=== PATIENT | female | born 1950 | race Caucasian/White ===

== ENCOUNTER 2023-03-05 13:09 | Emergency (ER) | payer OTHER, SELFPAY ==
[2023-03-05] VITALS (20 sets, daily range): BP systolic 104–146; BP diastolic 58–78; PULSE 70–82; RESP 10–27; TEMP 36.1; O2SAT 92–98
--- NOTE | ~2023-03-05 | XR_ITS ---
XR chest 2V DATE: 03/05/2023 14:12 INDICATION: Central chest pain, upper back pain. TECHNIQUE: 2 views, PA and lateral projections COMPARISON: None FINDINGS: Normal heart size. There is aortic arch calcification. No hilar or mediastinal enlargement. No pulmonary infiltrate or consolidation, pleural effusion or pulmonary vascular congestion or pneumo thorax. IMPRESSION: No active cardiopulmonary disease Aortic calcification Reviewed, dictated and finalized at location L.
--- NOTE | 2023-03-05 13:10 | ECG_ITS ---
Measurements Intervals [place] Rate: 90 P: -3 WV: 156 QRS: -2 QRSD: 104 T: 50 QT: 394 QTc: 482 Interpretive Statements SINUS RHYTHM CONSIDER INFERIOR INFARCT, AGE INDETERMINATE BASELINE ARTIFACT- I, II, AVF, V4-V5 ABNORMAL ECG NO PREVIOUS ECG AVAILABLE FOR COMPARISON Electronically Signed On 03-05-2023 14:23:28 CDT by Júnior Kinney D.O.
[2023-03-05] MEDS: BELLADONNA ALK/PHENOB ELIX 10 ML, MAG HYDROX/ALUMINUM HYD/SIMETH 30 ML, LIDOCAINE HCL 2... PO (14:04)
[2023-03-05 14:05] LABS: Basophils Absolute Auto 0.1 K/mm3 (0.0-0.1); Basophils Percent Auto 0.7 % (0.2-1.2); Eosinophils Absolute Auto 0.2 K/mm3 (0-0.3); Eosinophils Percent Auto 2.5 % (0-4.4); Hematocrit 42.8 % (37.0-47.0); Hemoglobin 14.6 g/dL (12.0-15.0); Immature Granulocyte Absolute 0.02 K/mm3 (0.00-0.031); Immature Granulocyte Percent A 0.3 % (0-0.5); Lymphocytes Absolute Auto 2.52 K/mm3 (0.9-3.2); Lymphocytes Percent Auto 33.2 % (18.3-44.2); Mean Corpuscular HGB Conc 34.1 g/dl (32-36); Mean Corpuscular Hemoglobin 30.2 pg (26-34); Mean Corpuscular Volume 88.4 fl (80-100); Monocytes Absolute Auto 0.5 K/mm3 (0.1-0.6); Monocytes Percent Auto 7.1 % (2.6-8.5); Neutrophils Absolute Auto 4.3 K/mm3 (1.3-6.7); Neutrophils Percent Auto 56.2 % (45.5-73.1); Platelet Count Result 427 k/mm3 (150-375); Red Blood Count 4.84 M/mm3 (4.2-5.4); Red Cell Distribution Width 12.6 % (11.5-14.5); White Blood Count 7.6 K/mm3 (4.5-10.0)
[2023-03-05 14:14] LABS: Alanine Aminotransferase 26 U/L (6-35); Albumin Level 4.8 g/dL (3.5-5.1); Alkaline Phosphatase 67 U/L (38-126); Anion Gap 11 mmol/L (8-16); Aspartate Amino Transferase 23 U/L (14-36); Bilirubin,Total 0.5 mg/dL (0.2-1.3); Blood Urea Nitrogen 16 mg/dL (7-17); Calcium 9.5 mg/dL (8.4-10.2); Carbon Dioxide 24 mmol/L (22-30); Chloride 103 mmol/L (98-107); Estimated CRCL calculation 34 ml/min; Estimated Glomerular Filt Rate 55; Glucose 175 mg/dL (65-110); Lipase 358 U/L (23-300); Potassium 3.4 mmol/L (3.4-5.0); Prothrombin Time 13.3 Seconds (11.1-14.7); Sodium 138 mmol/L (137-145)
[2023-03-05 14:26] LABS: Troponin I < 0.012 ng/mL (0.000-0.034)
[2023-03-05 16:00] LABS: Troponin I < 0.012 ng/mL (0.000-0.034)
--- NOTE | 2023-03-05 16:47 | ED.CHESTPAIN ---
HPI - Chest Pain General Chief Complaint: Chest Pain Stated Complaint: chest pain Time Seen by Provider: 03/05/23 13:43 Source: patient Mode of arrival: ambulatory Limitations: no limitations History of Present Illness HPI narrative: 72-year-old with a history of hypertension, s/p hiatal hernia repair approximately 2 years ago presents to ER with complaints of having chest pressure since this morning. She states that pain is midsternal nonradiating. She also mentions that she had cardiac cath done a year ago at [facility] did not have any significant stenosis which needed any interventions or stents. She denies any cough has occasional shortness of breath. MD complaint: chest pain Onset (ago): hour(s) (8) Timing of current episode: constant Pain location: substernal Pain radiation: none Severity: moderate Quality: burning Relieving factors: nothing Exacerbating factors: nothing Risk Factors Coronary artery disease risk factors: diabetes Related Data Allergies Allergy/AdvReac Type Severity Reaction Status Date / Time codeine AdvReac Hives Verified 03/05/23 13:10 Review of Systems Review of Systems: All systems reviewed & are unremarkable except as noted in HPI and below Eyes: Eyes: Reports no additional eye complaints ENT: Reports system reviewed and no additional complaints, except as documented Cardiovascular: Cardiovascular: Reports as per HPI Respiratory: Respiratory: Reports no additional respiratory complaints Gastrointestinal: Gastrointestinal: Reports no additional gastrointestinal complaints Musculoskeletal: Musculoskeletal: Reports no additional musculoskeletal complaints Integumentary/Breasts: Skin/Breast: Reports system reviewed and no additional complaints, except as docu Neurologic: Reports system reviewed and no additional complaints, except as documented Exam Narrative: GENERAL: Well-appearing, well-nourished, and in no acute distress. HEAD: Normocephalic, atraumatic. EYES: PERRLA and EOMI. ENT: Nares clear, no rhinorrhea or epistaxis. Mucous membranes moist. NECK: Supple. CHEST: Clear to auscultation. No respiratory distress. HEART: Regular rate and rhythm. No murmur heard. Normal peripheral pulses. ABDOMEN: Soft, nontender, nondistended, normal active bowel sounds. EXTREMITIES: Normal range of motion. No edema. SKIN: Warm, dry, no rash. NEURO: No focal deficits. Alert and oriented x3. PSYCH: Normal mood and affect. Course Course Emergency Course: Patient feeling much better after GI cocktail. Informed her and her about her lab work, EKG and chest x-ray findings. Advised her to continue home medications, follow-up with her white shoe ragger at [facility]. Vital Signs Vital signs: Vital Signs Temperature 36.1 C L 03/05/23 13:15 Pulse Rate 76 03/05/23 13:15 Respiratory Rate 18 03/05/23 13:15 Blood Pressure 146/60 H 03/05/23 13:15 Pulse Oximetry 98 03/05/23 13:15 Oxygen Delivery Room Air 03/05/23 13:15 Temperature 36.1 C L 03/05/23 13:15 Pulse Rate 72 03/05/23 15:00 Respiratory Rate 18 03/05/23 15:00 Blood Pressure 116/60 03/05/23 15:00 Pulse Oximetry 92 03/05/23 15:00 Oxygen Delivery Room Air 03/05/23 13:15 MDM - Chest Pain MDM Narrative Medical decision making narrative: 72-year-old with history of hypertension, hiatal hernia here with a midsternal chest pain which is continuous burning in nature since this morning her EKG is unremarkable we will do cardiac work-up minimal give her GI cocktail appears to be more relaxed reflux issue at this time. Differential Diagnosis Differential diagnosis: Likely stable angina, atypical chest pain and chest pain Lab Data Attestation: I reviewed the patient's lab results. 03/05/23 13:41 03/05/23 13:41 Labs: Lab Results 03/05/23 03/05/23 Range/Units 13:41 15:31 WBC 7.6 (4.5-10.0) K/mm3 RBC 4.84 (4.2-5.4) M/mm3 Hgb 14.6 (12.0-15.0) g/dL Hct 42.8
== END 2023-03-05 17:01 | disposition home or self-care (01) ==
PROVIDERS: Emergency Provider Family Medicine
DX: R07.89 Other chest pain (principal); I10 Essential (primary) hypertension; I70.0 Atherosclerosis of aorta; R94.31 Abnormal electrocardiogram [ECG] [EKG]
CPT/HCPCS: 36415; 71046; 80053; 83690; 84484; 85025; 85610; 85730; 93005; 99284; A9270

== ENCOUNTER 2024-03-10 16:10 | Observation (INO) | payer OTHER, SELFPAY ==
[2024-03-10] VITALS (12 sets, daily range): BP systolic 94–118; BP diastolic 54–87; PULSE 68–81; RESP 16–23; TEMP 36.5–36.6; O2SAT 94–100
--- NOTE | ~2024-03-10 | MR_ITS ---
EXAMINATION: MR brain/brain stem wo/w con DATE: 03/11/2024 08:51 INDICATION: Left hemiparesis. TECHNIQUE: Magnetic resonance imaging (MRI) of the brain and brainstem was performed without and with 13 mL MultiHance intravenous contrast. COMPARISON: Head CT 03/10/2024 FINDINGS: There are scattered areas of nonspecific increased T2-weighted signal intensity in the cere bral white matter and becky. There is no intracranial hemorrhage, acute infarction, or abnormal intrac ranial mass lesion. The ventricles are normal in size. The paranasal sinuses are clear. There are lik alexa changes of ocular lens replacement surgeries. The mastoid air cells are normal. IMPRESSION: 1. Mild nonspecific cerebral white matter disease and pontine disease, which likely represents chroni c small vessel ischemic disease. Reviewed, dictated and finalized at location A. ITY ASSURANCE DIRECTOR IMPRESSION: 1. Mild nonspecific cerebral white matter disease and pontine disease, which luther hatch represents chronic small vessel ischemic disease.
--- NOTE | ~2024-03-10 | CT_ITS ---
CTA brain carotid Ordering provider: Casey Saenz MD History: . Stroke like symptoms . Comparison: None. Technique: CT angiogram head and neck was performed following timed intravenous injection of contrast . Thin slice axial images and reformatted coronal images were obtained. Three dimensional reformatted images of the brain were also obtained using a [employer] workstation. DLP: 2253 mGy-cm FINDINGS: HEAD: --ANTERIOR AND MIDDLE CEREBRAL ARTERIES AND BRANCHES: Normal caliber and contour. --INTERNAL CAROTID ARTERIES: Moderate atheromatous disease within the right internal carotid artery r esulting in central stenosis but no occlusion. --BASILAR ARTERY AND BRANCHES: Normal caliber and contour. No significant atheromatous disease. Fenes tration of the basilar artery is incidentally noted. --POSTERIOR CEREBRAL ARTERIES: Normal caliber and contour --POSTERIOR COMMUNICATING ARTERIES: Normal caliber and contour. --ANEURYSM: None visualized. --BRAIN: Calcifications within the basal ganglia. No acute intracranial hemorrhage or suspicious mass effect. --BONES AND SUPERFICIAL SOFT TISSUES: No acute displaced fracture of the overlying cranium. --PARANASAL SINUSES AND MASTOIDS: The paranasal sinuses are clear. The mastoid air cells are well aer ated. NECK: --RIGHT CERVICAL CAROTID SYSTEM: Calcified atheromatous disease of the carotid bulb and proximal inte rnal carotid artery with a 52% stenosis per NASCET criteria. No carotid dissection. --LEFT CERVICAL CAROTID SYSTEM: No significant atheromatous disease of the carotid bulb and proximal internal carotid artery. 0% stenosis per NASCET criteria. No carotid dissection. --VERTEBRAL ARTERIES: Normal caliber and contour. --VISUALIZED AORTIC ARCH AND BRANCHING VESSELS: Mild atheromatous disease but no significant stenosis . --SOFT TISSUES: Unremarkable. --CERVICAL SPINE: Age appropriate degenerative changes. IMPRESSION: 1. Percent stenosis per NASCET criteria is 52% within the right internal carotid artery and 0% with in the left internal carotid artery. 2. Dense calcifications within the basal ganglia. 3. No intracranial aneurysmal dilatation or significant stenosis. Reviewed, dictated and finalized at location A. K CONTROLLER IMPRESSION: 1. Percent stenosis per NASCET criteria is 52% within the right internal hernandez tid artery and 0% within the left internal carotid artery. 2. Dense calcifications within the basal ganglia. 3. No intracranial aneurysmal dilatation or significant stenosis.
--- NOTE | ~2024-03-10 | XR_ITS ---
CHEST RADIOGRAPH, PA AND LATERAL CLINICAL HISTORY: weakness . COMPARISON: 03/05/2023 TECHNIQUE: PA and lateral views of the chest. FINDINGS The cardiomediastinal silhouette is unremarkable. The lungs are clear. Visualized osseous structures and soft tissues are unremarkable. IMPRESSION: No focal infiltrate or effusion. Reviewed, dictated and finalized at location A. ING FLORIST
--- NOTE | 2024-03-10 16:45 | ECG_ITS ---
Test Date: 2024-03-10 16:49:52 Measurements Intervals [place] Rate: 66 P: 25 OR: 175 QRS: 1 QRSD: 101 T: 46 QT: 397 QTc: 417 Interpretive Statements SINUS RHYTHM EARLY PRECORDIAL R/S TRANSITION CONSIDER INFERIOR INFARCT, AGE INDETERMINATE ABNORMAL ECG No previous ECG available for comparison Electronically Signed On 03-10-2024 17:59:42 [employer] by Júnior Kinney D.O.
[2024-03-10 16:53] LABS: Glucose Point of Care 182 mg/dl (65-105)
[2024-03-10 16:56] LABS: Basophils Percent Auto 0.2 % (0.2-1.2); Eosinophils Percent Auto 0.1 % (0-4.4); Hematocrit 41.6 % (37.0-47.0); Hemoglobin 14.2 g/dL (12.0-15.0); Immature Granulocyte Absolute 0.05 K/mm3 (0.00-0.031); Immature Granulocyte Percent A 0.4 % (0-0.5); Lymphocytes Absolute Auto 2.21 K/mm3 (0.9-3.2); Lymphocytes Percent Auto 17.1 % (18.3-44.2); Mean Corpuscular HGB Conc 34.1 g/dl (32-36); Mean Corpuscular Hemoglobin 31.5 pg (26-34); Mean Corpuscular Volume 92.2 fl (80-100); Monocytes Absolute Auto 0.8 K/mm3 (0.1-0.6); Monocytes Percent Auto 6.3 % (2.6-8.5); Neutrophils Absolute Auto 9.9 K/mm3 (1.3-6.7); Neutrophils Percent Auto 75.9 % (45.5-73.1); Platelet Count Result 497 k/mm3 (150-375); Red Blood Count 4.51 M/mm3 (4.2-5.4); Red Cell Distribution Width 13.4 % (11.5-14.5)
[2024-03-10 17:09] LABS: Alanine Aminotransferase 30 U/L (6-35); Albumin Level 4.4 g/dL (3.5-5.1); Alkaline Phosphatase 54 U/L (38-126); Anion Gap 15 mmol/L (4-12); Aspartate Amino Transferase 24 U/L (14-36); Bilirubin,Total 0.5 mg/dL (0.2-1.3); Blood Urea Nitrogen 36 mg/dL (7-17); Calcium 9.6 mg/dL (8.4-10.2); Carbon Dioxide 21 mmol/L (22-30); Chloride 104 mmol/L (98-107); Estimated Glomerular Filt Rate 32; Glucose 142 mg/dL (65-110); Potassium 4.1 mmol/L (3.4-5.0); Sodium 140 mmol/L (137-145)
[2024-03-10 19:49] LABS: Add Urine Microscopic? NO; Appearance Urine Clear (Clear); Bilirubin Urine Negative (Negative); Blood Urine Negative (Negative); Color Urine Yellow (Yellow); Glucose Urine UA Negative (Negative); Ketones Urine Negative (Negative); Leukocyte Esterase Ur Negative LEU/UL (Negative); Nitrate Urine Negative (Negative); Protein Urine Negative (Negative); Specific Grav Ur > 1.045 (1.001-1.035); Urobilinogen Urine 0.2 mg/dL (<2.0); pH Urine 5.5 (5.0-9.0)
--- NOTE | 2024-03-10 20:28 | ED.NEUROSD ---
HPI - Neuro Symptoms/Deficit General Chief Complaint: Neuro Symptoms/Deficit Stated Complaint: neuro sx since yesterday Time Seen by Provider: 03/10/24 17:29 History of Present Illness HPI Narrative: patient is a 73-year-old female who presents ER with increased weakness and falling over last 5 days. Developed more weakness in her left side upon waking today. Has slurred speech according is more confused. No history of CVA. No reports of trauma. Patient with mild confusion. Does not know the name of the hospital and provides a poor history. Related Data Allergies Allergy/AdvReac Type Severity Reaction Status Date / Time codeine AdvReac Hives Verified 03/05/23 13:10 Review of Systems Review of Systems: ROS unobtainable: Yes unobtainable due to mental status PMFSH Past Medical History Medical History (Updated 03/10/24 @ 21:43 by Casey Saenz MD) Diabetes Hypertension Social History Social History (Updated 03/10/24 @ 21:40 by Casey Saenz MD) Smoking status: Current every day smoker Exam Narrative: GENERAL: Well-appearing, well-nourished, and in no acute distress. HEAD: Normocephalic, atraumatic. EYES: PERRL and EOMI. ENT: Mucous membranes moist. CHEST: Clear to auscultation. No respiratory distress. HEART: Regular rate and rhythm. Normal peripheral pulses. ABDOMEN: Soft, nontender, nondistended. EXTREMITIES: Normal range of motion. No edema. SKIN: Warm, dry, no rash. NEURO: alert oriented times 2-3. Mild right-sided facial weakness. Slight dysarthria. No expressive aphasia. Difficulty with finger-nose testing and [id number] testing in the left upper and left lower extremity. See NIH stroke scale. PSYCH: Normal mood and affect. Course Course Emergency Course: symptoms seem to be improving with IV fluid. She does have stenosis of the right internal carotid. She may not be perfusing as well that side due to dehydration. Patient will be admitted to hospitalist service. Neurology consulted and will be able to see the patient 2 days but recommends anti-platelet therapy with aspirin and increasing atorvastatin to 40 mg as well as obtaining an MRI. Vital Signs Vital signs: Vital Signs Temperature 97.7 F 03/10/24 16:15 Pulse Rate 71 03/10/24 16:15 Respiratory Rate 16 03/10/24 16:15 Blood Pressure 106/54 L 03/10/24 16:15 Pulse Oximetry 97 03/10/24 16:15 Oxygen Delivery Room Air 03/10/24 16:15 Temperature 97.7 F 03/10/24 16:15 Pulse Rate 75 03/10/24 19:20 Respiratory Rate 19 03/10/24 19:20 Blood Pressure 108/87 03/10/24 19:20 Pulse Oximetry 96 03/10/24 19:20 Oxygen Delivery Room Air 03/10/24 16:15 MDM - Neuro Symptoms/Deficit Lab Data 03/10/24 16:52 03/10/24 16:51 Labs: Lab Results 03/10/24 03/10/24 03/10/24 Range/Units 16:39 16:51 16:52 WBC 13.0 H (4.5-10.0) K/mm3 RBC 4.51 (4.2-5.4) M/mm3 Hgb 14.2 (12.0-15.0) g/dL Hct 41.6 (37.0-47.0) % MCV 92.2 (80-100) fl MCH 31.5 (26-34) pg MCHC 34.1 (32-36) g/dl RDW 13.4 (11.5-14.5) % Plt Count 497 H (150-375) k/mm3 MPV 9.0 (7.4-10.4) fl Immature Gran % (Auto) 0.4 (0-0.5) % Neut % (Auto) 75.9 H (45.5-73.1) % Lymph % (Auto) 17.1 L (18.3-44.2) % [place] % (Auto) 6.3 (2.6-8.5) % Eos % (Auto) 0.1 (0-4.4) % Baso % (Auto) 0.2 (0.2-1.2) % Lymph # (Auto) 2.21 (0.9-3.2) K/mm3 [place] # (Auto) 0.8 H (0.1-0.6) K/mm3 Eos # (Auto) 0.0 (0-0.3) K/mm3 Baso # (Auto) 0.0 (0.0-0.1) K/mm3 Abs Immat Gran (auto) 0.05 H (0.00-0.031) K/mm3 Absolute Neuts (auto) 9.9 H (1.3-6.7) K/mm3 Absolute Nucleated RBC 0.000 (0.0-0.012) K/mm3 Nucleated RBC % 0.0 (0.0-0.2) % Sodium 140 (137-145) mmol/L Potassium 4.1 (3.4-5.0) mmol/L Chloride 104 (98-107) mmol/L Carbon Dioxide 21 L (22-30) mmol/L Anion Gap 15 H (4-12) mmol/L BUN 36 H D (7-17) mg/dL Creatinine 1.60 H (0.7-1.0) mg/dL Estim Creat Clear Calc Not Reportable Estimated GFR 32 L (59 - ) Glucose 142 H (65-110) mg/dL POC Capillary Glucose 182 H (65-105) mg/dl Calcium 9.6 (8.4-10.2) mg/dL Total Bilirubin 0.5 (0.2-1.3) mg/dL AST 24 (14-36) U/L ALT 30 (6-35) U/L Alkaline Phosphatase 54 (38-126) U/L Total Protein 7.0 (6.3-8.2) g/dL Albumin 4.4 (3.5-5.1) g/dL Urine Color (Yellow) Urine Appearance (Clear) Urine pH (5.0-9.0) Ur Specific [place] (1.001-1.035) Urine Protein (Negative) mg/dL Urine Glucose (UA) (Negative) mg/dL Urine Ketones (Negative) mg/dL Ur Blood (Man) (Negative) Urine Nitrate (Negative) Urine Bilirubin (Negative) Urine Urobilinogen (<2.0) mg/dL Leukocyte Esterase Rfl (Negative) ROLA/UL 03/10/24 Range/Units 19:44 WBC (4.5-10.0) K/mm3 RBC (4.2-5.4) M/mm3 Hgb (12.0-15.0) g/dL Hct (37.0-47.0) % MCV (80-100) fl MCH (26-34) pg MCHC (32-36) g/dl RDW (11.5-14.5) % Plt Count (150-375) k/mm3 MPV (7.4-10.4) fl Immature Gran % (Auto) (0-0.5) % Neut % (Auto) (45.5-73.1) % Lymph % (Auto) (18.3-44.2) % [place] % (Auto) (2.6-8.5) % Eos % (Auto) (0-4.4) % Baso % (Auto) (0.2-1.2) % Lymph # (Auto) (0.9-3.2) K/mm3 [place] # (Auto) (0.1-0.6) K/mm3 Eos # (Auto) (0-0.3) K/mm3 Baso # (Auto) (0.0-0.1) K/mm3 Abs Immat Gran (auto) (0.00-0.031) K/mm3 Absolute Neuts (auto) (1.3-6.7) K/mm3 Absolute Nucleated RBC (0.0-0.012) K/mm3 Nucleated RBC % (0.0-0.2) % Sodium (137-145) mmol/L Potassium (3.4-5.0) mmol/L Chloride (98-107) mmol/L Carbon Dioxide (22-30) mmol/L Anion Gap (4-12) mmol/L BUN (7-17) mg/dL Creatinine (0.7-1.0) mg/dL Estim Creat Clear Calc Estimated GFR (59 - ) Glucose (65-110) mg/dL POC Capillary Glucose (65-105) mg/dl Calcium (8.4-10.2) mg/dL Total Bilirubin (0.2-1.3) mg/dL AST (14-36) U/L ALT (6-35) U/L Alkaline Phosphatase (38-126) U/L Total Protein (6.3-8.2) g/dL Albumin (3.5-5.1) g/dL Urine Color Yellow (Yellow) Urine Appearance Clear (Clear) Urine pH 5.5 (5.0-9.0) Ur Specific [place] > 1.045 H (1.001-1.035) Urine Protein Negative (Negative) mg/dL Urine Glucose (UA) Negative (Negative) mg/dL Urine Ketones Negative (Negative) mg/dL Ur Blood (Man) Negative (Negative) Urine Nitrate Negative (Negative) Urine Bilirubin Negative (Negative) Urine Urobilinogen 0.2 (<2.0) mg/dL Leukocyte Esterase Rfl Negative (Negative) ROLA/UL Imaging Data Radiologist's impression: ITS Impressions Chest X-Ray 03/10/24 17:43 IMPRESSION: No focal infiltrate or effusion. Head/Neck CTA 03/10/24 19:42 IMPRESSION: 1. Percent stenosis per NASCET criteria is 52% within the right internal carotid artery and 0% within the left internal carotid artery. 2. Dense calcifications within the basal ganglia. 3. No intracranial aneurysmal dilatation or significant stenosis. ECG Data EKG #1: ECG completion date: 03/10/24 ECG completion time: 16:49 EKG Interpretation: normal rate (66), sinus rhythm, non-specific ST changes, normal QRS, normal QT and left axis Discharge Plan Discharge Clinical Impression: Stroke-like symptoms, Dehydration Patient Disposition: Still a Patient Condition: Stable Follow-up/Referrals: UNKNOWN,DOCTOR [Primary Care Provider] - Quality Stroke Scale Stroke Scale 1: 1a Level of consciousness: alert-0 1b Level of consciousness questions: answers both correctly-0 ( Month/year/name) 1c Level of consciousness commands: obeys both correctly-0 2 Best gaze: normal-0 3 Visual: no visual loss-0 4 Facial palsy: minor paralysis-1 5a Motor: left arm: no drift-0 5b Motor: right arm: no drift-0 6a Motor: left leg: drift-1 6b Motor: right leg: no drift-0 7 Limb ataxia: present in two limbs-2 8 Sensory: normal-0 9 Best language: no aphasia-0 10 Dysarthria: slurs some words-1 11 Extinction and inattention: no abnormality-0 Level:: 5
[2024-03-10] MEDS: ASPIRIN 325 MG TABLET PO (20:58)
--- NOTE | 2024-03-10 21:16 | PM.IMHP ---
H&P: HPI History of Present Illness Date/Time: 03/10/24 21:16 Chief Complaint: weakness Narrative: This is a 73-year-old female with past medical history significant for diabetes, hypertension, generalized anxiety disorder, dyslipidemia. Patient presents to the emergency room due to a speech disturbance, weakness localized to the left hemibody A at the time of my visit patient is symptoms have resolved. Patient denies any fevers, rigors, chills, headaches, nausea, vomiting. preliminary workup was significant for creatinine of 1.6. Patient has been placed in observation for further evaluation management and treatment. CHEST RADIOGRAPH, PA AND LATERAL CLINICAL HISTORY: weakness . COMPARISON: 03/05/2023 TECHNIQUE: PA and lateral views of the chest. FINDINGS The cardiomediastinal silhouette is unremarkable. The lungs are clear. Visualized osseous structures and soft tissues are unremarkable. IMPRESSION: No focal infiltrate or effusion. CTA brain carotid Ordering provider: Casey Saenz MD History: . Stroke like symptoms . Comparison: None. Technique: CT angiogram head and neck was performed following timed intravenous injection of contrast. Thin slice axial images and reformatted coronal images were obtained. Three dimensional reformatted images of the brain were also obtained using a [employer] workstation. DLP: 2253 mGy-cm FINDINGS: HEAD: --ANTERIOR AND MIDDLE CEREBRAL ARTERIES AND BRANCHES: Normal caliber and contour. --INTERNAL CAROTID ARTERIES: Moderate atheromatous disease within the right internal carotid artery resulting in central stenosis but no occlusion. --BASILAR ARTERY AND BRANCHES: Normal caliber and contour. No significant atheromatous disease. 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 --POSTERIOR CEREBRAL ARTERIES: Normal caliber and contour --POSTERIOR COMMUNICATING ARTERIES: Normal caliber and contour. --ANEURYSM: None visualized. --BRAIN: Calcifications within the basal ganglia. No acute intracranial hemorrhage or suspicious mass effect. --BONES AND SUPERFICIAL SOFT TISSUES: No acute displaced fracture of the overlying cranium. --PARANASAL SINUSES AND MASTOIDS: The paranasal sinuses are clear. The mastoid air cells are well aerated. NECK: --RIGHT CERVICAL CAROTID SYSTEM: Calcified atheromatous disease of the carotid bulb and proximal internal carotid artery with a 52% stenosis per NASCET criteria. No carotid dissection. --LEFT CERVICAL CAROTID SYSTEM: No significant atheromatous disease of the carotid bulb and proximal internal carotid artery. 0% stenosis per NASCET criteria. No carotid dissection. --VERTEBRAL ARTERIES: Normal caliber and contour. --VISUALIZED AORTIC ARCH AND BRANCHING VESSELS: Mild atheromatous disease but no significant stenosis. --SOFT TISSUES: Unremarkable. --CERVICAL SPINE: Age appropriate degenerative changes. IMPRESSION: 1. Percent stenosis per NASCET criteria is 52% within the right internal carotid artery and 0% within the left internal carotid artery. 2. Dense calcifications within the basal ganglia. 3. No intracranial aneurysmal dilatation or significant stenosis. Review of Systems Review of Systems: weakness , speech disturbance [facility] Past Medical History Medical History (Updated 03/11/24 @ 00:45 by Mamta Wu MD) Diabetes Hypertension Family History Family History (Updated 03/10/24 @ 22:40 by Analilia Mckenna RN) Father Chronic obstructive pulmonary disease Sibling Cerebrovascular accident Social History Social History (Updated 03/10/24 @ 21:40 by Casey Saenz MD) Smoking packs per day: 0.5 Smoking cigarettes per day: 10.0 Smoking status: Current every day smoker Tobacco type: cigarettes Substance use: current Substance use type: does not use Do You Feel Safe in your Home?: Yes Lack of Transportation: No Lack of Food: Never True Current Housing: I Have Housing Concerned About Future Housing: No Difficulty Paying Gas/Electric Bills: No Difficulty Paying for Meds: No Currently Unemployed: No Education: Trade/Vocational Certificate Difficulty w/ Childcare or Family Care: No Spiritual care concerns: No Meds Home Medications and Allergies Home Medications Medication Instructions Recorded Confirmed Type amlodipine 10 mg tablet 10 mg PO DAILY 03/10/24 03/10/24 History aspirin 81 mg capsule 81 mg PO DAILY 03/10/24 03/10/24 History atorvastatin 20 mg tablet 20 mg PO DAILY 03/10/24 03/10/24 History bupropion HCl 300 mg 24 hr tablet, 300 mg PO DAILY 03/10/24 03/10/24 History extended release duloxetine 60 mg capsule,delayed 60 mg PO DAILY 03/10/24 03/10/24 History release fluticasone propionate 50 1 spray intranasal DAILY allergy 03/10/24 03/10/24 History mcg/actuation nasal spray,suspension gabapentin 300 mg capsule 300 mg PO DAILY 03/10/24 03/10/24 History ibuprofen 600 mg tablet 600 mg PO TID pain 03/10/24 03/10/24 History losartan 50 mg tablet 50 mg PO DAILY 03/10/24 03/10/24 History meclizine 25 mg tablet 25 mg PO DAILY 03/10/24 03/10/24 History meloxicam 15 mg tablet 15 mg PO DAILY 03/10/24 03/10/24 History metformin 500 mg tablet,extended 500 mg PO DAILY 03/10/24 03/10/24 History release 24 hr metoprolol succinate 25 mg 25 mg PO DAILY 03/10/24 03/10/24 History tablet,extended release 24 hr tizanidine 4 mg tablet 4 mg PO Q6H PRN muscle spasms 03/10/24 03/10/24 History tramadol 50 mg tablet 50 mg PO Q6H PRN Pain 03/10/24 03/10/24 History triamterene 37.5 1 tablet PO DAILY 03/10/24 03/10/24 History mg-hydrochlorothiazide 25 mg tablet zolpidem 10 mg tablet 10 mg PO HS 03/10/24 03/10/24 History Allergies Allergy/AdvReac Type Severity Reaction Status Date / Time codeine AdvReac Hives Verified 03/05/23 13:10 Vital Signs Vital Signs - 24 hr 03/10/24 16:15 03/10/24 16:30 03/10/24 16:30 Temperature 97.7 F Pulse Rate 71 68 69 Respiratory Rate 16 20 17 Blood Pressure 106/54 L 106/55 L 106/55 L Pulse Oximetry 97 94 95 Oxygen Delivery Room Air 03/10/24 16:32 03/10/24 16:46 03/10/24 17:01 Temperature Pulse Rate 68 68 81 Respiratory Rate 20 22 H 23 H Blood Pressure 109/60 94/55 L 106/58 L Pulse Oximetry 94 Oxygen Delivery 03/10/24 17:16 03/10/24 17:37 03/10/24 18:09 Temperature Pulse Rate 69 68 75 Respiratory Rate 19 20 17 Blood Pressure 113/71 Pulse Oximetry 100 97 97 Oxygen Delivery 03/10/24 18:19 03/10/24 19:20 03/10/24 19:20 Temperature Pulse Rate 77 75 75 Respiratory Rate 19 19 Blood Pressure 112/77 108/87 Pulse Oximetry 97 96 Oxygen Delivery 03/10/24 21:02 03/10/24 21:02 Temperature Pulse Rate 75 74 Respiratory Rate 17 20 Blood Pressure 118/65 118/65 Pulse Oximetry 98 98 Oxygen Delivery Exam Narrative: patient is laying in bed Const: General: comfortable, no acute distress, well developed, alert, awake and average body habitus Nutritional Appearance: average body habitus Orientation/consciousness: patient oriented x3 Other: looks dry HENMT: Head: normal to inspection, normocephalic and atraumatic Ears: hearing grossly normal bilaterally Face/Nose/Sinus: normal facial exam Face and sinus: normal facial exam Eyes: General: appearance normal, both eyes and all related structures Pupils: Equal, round and reactive pupils present EOM: EOMs intact bilaterally Neck: Neck: full ROM, no lymphadenopathy and no JVD Thyroid: thyroid normal Lymphatic: no lymphadenopathy noted Resp: Effort & Inspection: normal respiratory effort and able to speak in complete sentences Auscultation: clear to auscultation bilaterally Cardio: Jugular venous distension: no JVD Rate: regular rate Rhythm: regular rhythm Heart sounds: S1 normal heart sound present and S2 normal heart sound present GI: GI Palp: Yes Soft to palpation and Yes No hepatosplenomegaly present : General: Yes deferred Skin: Rashes: no rashes Wounds: no wounds Neuro: General: patient oriented x3 and CN's II-XI intact bilaterally Cranial nerves: Yes CN's II-XII intact bilaterally and Yes Equal, round and reactive pupils present Cognition (Neuro): normal cognition Speech: normal speech Gait exam (Neuro): Normal gait present Motor exam (neuro): 5/5 motor strength present throughout Extrem: General: normal to inspection, full ROM, no joint enlargement and no pedal edema H&P: Results Labs Labs: Short CBC 03/10/24 Range/Units 16:52 WBC 13.0 H (4.5-10.0) K/mm3 Hgb 14.2 (12.0-15.0) g/dL Hct 41.6 (37.0-47.0) % Plt Count 497 H (150-375) k/mm3 BMP 03/10/24 16:51 Sodium 140 Potassium 4.1 Chloride 104 Carbon Dioxide 21 L BUN 36 H D Creatinine 1.60 H Glucose 142 H Calcium 9.6 Liver Function 03/10/24 Range/Units 16:51 Total Bilirubin 0.5 (0.2-1.3) mg/dL AST 24 (14-36) U/L ALT 30 (6-35) U/L Alkaline Phosphatase 54 (38-126) U/L Albumin 4.4 (3.5-5.1) g/dL Urine 03/10/24 Range/Units 19:44 Urine Color Yellow (Yellow) Urine Appearance Clear (Clear) Urine pH 5.5 (5.0-9.0) Ur Specific [place] > 1.045 H (1.001-1.035) Urine Protein Negative (Negative) mg/dL Urine Glucose (UA) Negative (Negative) mg/dL Assessment and Plan Assessment and plan (1) Stroke-like symptoms: Code(s): R29.90 - Unspecified symptoms and signs involving the nervous system Status: Acute Assessment and Plan: Admit to [facility] tele CTA of head and neck reviewed neurology consult (2) Dehydration: Code(s): E86.0 - Dehydration Status: Acute Assessment and Plan: gentle hydration (3) JHONY (acute kidney injury): Code(s): N17.9 - Acute kidney failure, unspecified Status: Acute Assessment and Plan: holding losartan holding triamterene hydrochlorothiazide push per oral daily I's and O's Hospitalist [facility] Advance Care Plan I have confirmed that the patient's Advanced Care Plan is present, code status is documented, or surrogate decision maker is listed in patient medical record.: Yes Medication Reconciliation I have utilized all available resources to obtain, update and review the patients current medications (includes all prescriptions, OTC, herbals, cannabis, and nutritional supplements).: Yes
[2024-03-10] MEDS: SODIUM CHLORIDE 0.9% IV 1,000 ML 125 ML IV CONT (21:46)
--- NOTE | 2024-03-10 22:29 | ADMGEN ---
This patient, Lorri Hutchinson, was admitted to Medical Room 243-01. Patient/family oriented to hospital policies and general routines including ID bracelet, bed and alarms, visiting hours, pain management, procedures, bathroom and other care routines, personal items, smoking policy, room service/diet, and visiting hours. Information on how to activate the Rapid Response Team has been discussed. Patient/Family are encouraged to report perceived risks to care and to ask questions if they do not understand what they are told or what they should do.
[2024-03-11] VITALS (11 sets, daily range): BP systolic 110–139; BP diastolic 57–64; PULSE 69–82; RESP 16–18; TEMP 36.4–36.9; O2SAT 94–97; BMI 27.8
--- NOTE | 2024-03-11 08:34 | PM.IMPN ---
Progress Note: A&P Assessment and Plan (1) Stroke-like symptoms: Code(s): R29.90 - Unspecified symptoms and signs involving the nervous system Status: Acute Assessment and Plan: Admit to [facility] tele CTA of head and neck reviewed neurology consult - statin 20 mg-will continue - will recheck fasting lipid profile, TSH, vit b12/folate (2) Dehydration: Code(s): E86.0 - Dehydration Status: Acute Assessment and Plan: gentle hydration with IV fluids monitor I/O (3) JHONY (acute kidney injury): Code(s): N17.9 - Acute kidney failure, unspecified Status: Acute Assessment and Plan: holding losartan holding triamterene hydrochlorothiazide push per oral daily I's and O's Time Spent With Patient Time with patient: Greater than 35 minutes Subjective Date/time seen: 03/11/24 08:34 Interval history: Narrative retrieved from H/P: This is a 73-year-old female with past medical history significant for diabetes, hypertension, generalized anxiety disorder, dyslipidemia. Patient presents to the emergency room due to a speech disturbance, weakness localized to the left hemibody A at the time of my visit patient is symptoms have resolved. Patient denies any fevers, rigors, chills, headaches, nausea, vomiting. preliminary workup was significant for creatinine of 1.6. Patient has been placed in observation for further evaluation management and treatment. 03/11- pt is seen and examined. neurology was consulted. pt reports no acute events overnights. no weakness. reports mouth still feels weird - dry but to both sides. Review of Systems Constitutional: Constitutional: Denies body ache(s) and Denies chills ENT: Comments: dry, weird feeling to mouth Cardiovascular: Cardiovascular: Denies chest pain Respiratory: Respiratory: Denies chest congestion and Denies cough Exam Narrative: patient is laying in bed Const: General: comfortable, no acute distress, well developed, alert and awake Nutritional Appearance: average body habitus Orientation/consciousness: patient oriented x3 Other: looks dry HENMT: Head: normal to inspection, normocephalic and atraumatic Ears: hearing grossly normal bilaterally Face/Nose/Sinus: normal facial exam Face and sinus: normal facial exam Eyes: General: appearance normal, both eyes and all related structures Pupils: Equal, round and reactive pupils present EOM: EOMs intact bilaterally Neck: Neck: full ROM, no lymphadenopathy and no JVD Thyroid: thyroid normal Lymphatic: no lymphadenopathy noted Resp: Effort & Inspection: normal respiratory effort and able to speak in complete sentences Auscultation: clear to auscultation bilaterally Cardio: Jugular venous distension: no JVD Rate: regular rate Rhythm: regular rhythm : General: Yes deferred Skin: Rashes: no rashes Wounds: no wounds Neuro: General: patient oriented x3 and CN's II-XI intact bilaterally Cranial nerves: Yes CN's II-XII intact bilaterally and Yes Equal, round and reactive pupils present Cognition (Neuro): normal cognition Speech: normal speech Motor exam (neuro): 5/5 motor strength present throughout Extrem: General: normal to inspection, full ROM and no pedal edema Psych: Affect: normal affect Objective Data Vital Signs Vital Signs: Vital Signs - 24 hr 03/10/24 16:15 03/10/24 16:30 03/10/24 16:30 Temperature 97.7 F Pulse Rate 71 68 69 Respiratory Rate 16 20 17 Blood Pressure 106/54 L 106/55 L 106/55 L Pulse Oximetry 97 94 95 Oxygen Delivery Room Air 03/10/24 16:32 03/10/24 16:46 03/10/24 17:01 Temperature Pulse Rate 68 68 81 Respiratory Rate 20 22 H 23 H Blood Pressure 109/60 94/55 L 106/58 L Pulse Oximetry 94 Oxygen Delivery 03/10/24 17:16 03/10/24 17:37 03/10/24 18:09 Temperature Pulse Rate 69 68 75 Respiratory Rate 19 20 17 Blood Pressure 113/71 Pulse Oximetry 100 97 97 Oxygen Delivery 03/10/24 18:19 03/10/24 19:20 03/10/24 19:20 Temperature Pulse Rate 77 75 75 Respiratory Rate 19 19 Blood Pressure 112/77 108/87 Pulse Oximetry 97 96 Oxygen Delivery 03/10/24 21:02 03/10/24 21:02 03/10/24 23:18 Temperature Pulse Rate 75 74 Respiratory Rate 17 20 Blood Pressure 118/65 118/65 Pulse Oximetry 98 98 Oxygen Delivery Room Air 03/10/24 23:51 03/11/24 00:00 03/11/24 04:00 Temperature 97.9 F Pulse Rate 72 72 75 Respiratory Rate 18 Blood Pressure 110/54 L Pulse Oximetry 96 Oxygen Delivery 03/11/24 06:00 Temperature 97.5 F L Pulse Rate 69 Respiratory Rate 18 Blood Pressure 110/64 Pulse Oximetry 97 Oxygen Delivery Intake/Output Intake/Output: Intake & Output 03/08/24 03/09/24 03/10/24 03/11/24 23:59 23:59 23:59 23:59 Intake Total 400 Output Total 2100 Balance -1700 Meds/Results Medications: Active Medications Generic Name Dose Route Start Last Admin Trade Name Freq PRN Reason Stop Dose Admin Acetaminophen 650 mg 03/10/24 21:25 Acetaminophen 325 Mg Tablet PO Q4H PRN Mild Pain (1-3) or Fever Amlodipine Besylate 10 mg 03/11/24 09:00 Amlodipine Besylate 10 Mg Tablet PO DAILY [facility] Aspirin 81 mg 03/11/24 09:00 Aspirin 81 Mg Enteric Tablet PO 04/10/24 08:59 DAILY [facility] Atorvastatin Calcium 20 mg 03/11/24 09:00 Atorvastatin 20 Mg Tablet PO DAILY [facility] Bupropion HCl 300 mg 03/11/24 09:00 Bupropion Hcl Xl (24 Hr) 150 Mg Tabcr PO DAILY [facility] Duloxetine HCl 60 mg 03/11/24 09:00 Duloxetine Hcl 60 Mg Capsule.Dr PO DAILY [facility] Fluticasone Propionate 1 spray 03/11/24 09:00 Fluticasone Propionate 0.05% Na Spr 16 Gm Btl (*Bkc) NASAL DAILY [facility] Gabapentin 900 mg 03/11/24 09:00 Gabapentin 300 Mg Capsule PO QAM [facility] Gabapentin 300 mg 03/11/24 21:00 Gabapentin 300 Mg Capsule PO HS [facility] Sodium Chloride 1,000 mls @ 125 mls/hr 03/10/24 21:25 03/10/24 21:46 Normal Saline Iv IV CONT 125 mls/hr .Q8H [facility] Administration Metoprolol Succinate 25 mg 03/11/24 09:00 Metoprolol Succinate Ext Rel 25 Mg Tabcr PO DAILY [facility] Ondansetron HCl 4 mg 03/10/24 21:25 Ondansetron Inj 4 Mg/2 Ml Vial IV PUSH Q4H PRN Nausea Tizanidine HCl 4 mg 03/11/24 00:41 Tizanidine Hcl 4 Mg Tablet PO Q6H PRN muscle spasms Tramadol HCl 50 mg 03/11/24 00:41 Tramadol Hcl (*Crx) 50 Mg Tablet PO Q6H PRN Pain 4-6 Radiology Results: ITS Impressions Chest X-Ray 03/10/24 17:43 IMPRESSION: No focal infiltrate or effusion. Head/Neck CTA 03/10/24 19:42 IMPRESSION: 1. Percent stenosis per NASCET criteria is 52% within the right internal carotid artery and 0% within the left internal carotid artery. 2. Dense calcifications within the basal ganglia. 3. No intracranial aneurysmal dilatation or significant stenosis. Labs Labs: Laboratory Results - last 24 hr 03/10/24 03/10/24 03/10/24 16:39 16:51 16:52 WBC 13.0 H RBC 4.51 Hgb 14.2 Hct 41.6 MCV 92.2 MCH 31.5 MCHC 34.1 RDW 13.4 Plt Count 497 H MPV 9.0 Immature Gran % (Auto) 0.4 Neut % (Auto) 75.9 H Lymph % (Auto) 17.1 L [place] % (Auto) 6.3 Eos % (Auto) 0.1 Baso % (Auto) 0.2 Lymph # (Auto) 2.21 [place] # (Auto) 0.8 H Eos # (Auto) 0.0 Baso # (Auto) 0.0 Abs Immat Gran (auto) 0.05 H Absolute Neuts (auto) 9.9 H Absolute Nucleated RBC 0.000 Nucleated RBC % 0.0 Sodium 140 Potassium 4.1 Chloride 104 Carbon Dioxide 21 L Anion Gap 15 H BUN 36 H D Creatinine 1.60 H Estim Creat Clear Calc Not Reportable Estimated GFR 32 L Glucose 142 H POC Capillary Glucose 182 H Calcium 9.6 Total Bilirubin 0.5 AST 24 ALT 30 Alkaline Phosphatase 54 Total Protein 7.0 Albumin 4.4 Urine Color Urine Appearance Urine pH Ur Specific [place] Urine Protein Urine Glucose (UA) Urine Ketones Ur Blood (Man) Urine Nitrate Urine Bilirubin Urine Urobilinogen Leukocyte Esterase Rfl 03/10/24 19:44 WBC RBC Hgb Hct MCV MCH MCHC RDW Plt Count MPV Immature Gran % (Auto) Neut % (Auto) Lymph % (Auto) [place] % (Auto) Eos % (Auto) Baso % (Auto) Lymph # (Auto) [place] # (Auto) Eos # (Auto) Baso # (Auto) Abs Immat Gran (auto) Absolute Neuts (auto) Absolute Nucleated RBC Nucleated RBC % Sodium Potassium Chloride Carbon Dioxide Anion Gap BUN Creatinine Estim Creat Clear Calc Estimated GFR Glucose POC Capillary Glucose Calcium Total Bilirubin AST ALT Alkaline Phosphatase Total Protein Albumin Urine Color Yellow Urine Appearance Clear Urine pH 5.5 Ur Specific [place] > 1.045 H Urine Protein Negative Urine Glucose (UA) Negative Urine Ketones Negative Ur Blood (Man) Negative Urine Nitrate Negative Urine Bilirubin Negative Urine Urobilinogen 0.2 Leukocyte Esterase Rfl Negative Quality VTE Prophylaxis VTE prophylaxis: pharmacologic ordered
[2024-03-11] MEDS: FLUTICASONE PROPIONATE 0.05% NA SPR 16 GM BTL (*BKC) 1 SPRAY NASAL (09:22)
[2024-03-11] MEDS: ASPIRIN 81 MG ENTERIC TABLET PO (09:23)
[2024-03-11] MEDS: METOPROLOL SUCCINATE EXT REL 25 MG TABCR PO (09:23)
[2024-03-11] MEDS: DULoxetine HCL 60 MG CAPSULE.DR PO (09:24)
[2024-03-11] MEDS: ENOXAPARIN 40 MG/0.4 ML SYRINGE SUB-Q (09:24)
[2024-03-11] MEDS: amLODIPine BESYLATE 10 MG TABLET PO (09:24)
[2024-03-11] MEDS: ATORVASTATIN 20 MG TABLET PO (09:24)
[2024-03-11] MEDS: GABAPENTIN 300 MG CAPSULE 900 MG PO (09:24)
[2024-03-11] MEDS: buPROPion HCL XL (24 HR) 150 MG TABCR 300 MG PO (09:24)
[2024-03-11] MEDS: GABAPENTIN 300 MG CAPSULE PO (21:06)
[2024-03-12] VITALS: PULSE 66
[2024-03-12 04:00] VITALS: PULSE 67
[2024-03-12 05:27] LABS: Hematocrit 40.3 % (37.0-47.0); Hemoglobin 13.6 g/dL (12.0-15.0); Mean Corpuscular HGB Conc 33.7 g/dl (32-36); Mean Corpuscular Hemoglobin 31.1 pg (26-34); Mean Platelet Volume 8.8 fl (7.4-10.4); Platelet Count Result 387 k/mm3 (150-375); Red Blood Count 4.38 M/mm3 (4.2-5.4); Red Cell Distribution Width 13.2 % (11.5-14.5); White Blood Count 7.7 K/mm3 (4.5-10.0)
[2024-03-12 05:39] LABS: Anion Gap 6 mmol/L (4-12); Blood Urea Nitrogen 17 mg/dL (7-17); Calcium 9.1 mg/dL (8.4-10.2); Carbon Dioxide 26 mmol/L (22-30); Chloride 110 mmol/L (98-107); Cholesterol 139 mg/dL (0-200); Estimated CRCL calculation 56 ml/min; Estimated Glomerular Filt Rate > 60; Glucose 128 mg/dL (65-110); HDL Direct 37 mg/dL; Sodium 142 mmol/L (137-145); Triglycerides 138 mg/dL (<150)
[2024-03-12 05:48] VITALS: BP 140/66; PULSE 65; RESP 16; TEMP 36.4; O2SAT 96
[2024-03-12 05:48] LABS: LDL Cholesterol Direct 71 mg/dL
[2024-03-12] MEDS: SODIUM CHLORIDE 0.9% IV 1,000 ML 125 ML IV CONT (05:48)
[2024-03-12 06:43] LABS: Folic Acid 7.6 ng/mL (2.76->20)
--- NOTE | 2024-03-12 07:33 | PM.IMPN ---
Progress Note: A&P Assessment and Plan (1) Stroke-like symptoms: Code(s): R29.90 - Unspecified symptoms and signs involving the nervous system Status: Acute Assessment and Plan: Admit to [facility] tele CTA of head and neck reviewed neurology consult - statin 20 mg-will continue - will recheck fasting lipid profile, TSH, vit b12/folate (2) Dehydration: Code(s): E86.0 - Dehydration Status: Acute Assessment and Plan: gentle hydration with IV fluids monitor I/O (3) JHONY (acute kidney injury): Code(s): N17.9 - Acute kidney failure, unspecified Status: Acute Assessment and Plan: holding losartan holding triamterene hydrochlorothiazide push per oral daily I's and O's 03/12- imporved- if eating/drinking ok will stop iv fluids Subjective Date/time seen: 03/12/24 07:33 Interval history: Narrative retrieved from H/P: This is a 73-year-old female with past medical history significant for diabetes, hypertension, generalized anxiety disorder, dyslipidemia. Patient presents to the emergency room due to a speech disturbance, weakness localized to the left hemibody A at the time of my visit patient is symptoms have resolved. Patient denies any fevers, rigors, chills, headaches, nausea, vomiting. preliminary workup was significant for creatinine of 1.6. Patient has been placed in observation for further evaluation management and treatment. 03/11- pt is seen and examined. neurology was consulted. pt reports no acute events overnights. no weakness. reports mouth still feels weird - dry but to both sides. 03/12- waiting neurology consult. no acute events overnight. labs reviewed. Review of Systems Review of Systems: weakness , speech disturbance Constitutional: Constitutional: Denies body ache(s) and Denies chills Cardiovascular: Cardiovascular: Denies chest pain Respiratory: Respiratory: Denies chest congestion and Denies cough Exam Narrative: patient is laying in bed Const: General: comfortable, no acute distress, well developed, alert, awake and average body habitus Nutritional Appearance: average body habitus Orientation/consciousness: patient oriented x3 Other: looks dry HENMT: Head: normal to inspection, normocephalic and atraumatic Ears: hearing grossly normal bilaterally Face/Nose/Sinus: normal facial exam Face and sinus: normal facial exam Eyes: General: appearance normal, both eyes and all related structures Pupils: Equal, round and reactive pupils present EOM: EOMs intact bilaterally Neck: Neck: full ROM, no lymphadenopathy and no JVD Thyroid: thyroid normal Lymphatic: no lymphadenopathy noted Resp: Effort & Inspection: normal respiratory effort and able to speak in complete sentences Auscultation: clear to auscultation bilaterally Cardio: Jugular venous distension: no JVD Rate: regular rate Rhythm: regular rhythm Heart sounds: S1 normal heart sound present and S2 normal heart sound present : General: Yes deferred Skin: Rashes: no rashes Wounds: no wounds Neuro: General: patient oriented x3 and CN's II-XI intact bilaterally Cranial nerves: Yes CN's II-XII intact bilaterally and Yes Equal, round and reactive pupils present Cognition (Neuro): normal cognition Speech: normal speech Gait exam (Neuro): Normal gait present Motor exam (neuro): 5/5 motor strength present throughout Extrem: General: normal to inspection, full ROM, no joint enlargement and no pedal edema Psych: Affect: normal affect Objective Data Vital Signs Vital Signs: Vital Signs - 24 hr 03/11/24 09:23 03/11/24 09:57 03/11/24 08:00 Temperature Pulse Rate 70 75 Respiratory Rate Blood Pressure Pulse Oximetry 94 Oxygen Delivery Room Air 03/11/24 12:00 03/11/24 14:00 03/11/24 16:00 Temperature 98.4 F Pulse Rate 75 73 82 Respiratory Rate 18 Blood Pressure 139/60 Pulse Oximetry 96 Oxygen Delivery 03/11/24 20:00 03/11/24 20:00 03/11/24 21:04 Temperature 97.8 F Pulse Rate 82 82 73 Respiratory Rate 18 16 Blood Pressure 118/57 L Pulse Oximetry 96 95 Oxygen Delivery Room Air 03/12/24 00:00 03/12/24 04:00 03/12/24 05:48 Temperature 97.6 F Pulse Rate 66 67 65 Respiratory Rate 16 Blood Pressure 140/66 Pulse Oximetry 96 Oxygen Delivery Intake/Output Intake/Output: Intake & Output 03/09/24 03/10/24 03/11/24 03/12/24 23:59 23:59 23:59 23:59 Intake Total 1880 250 Output Total 2800 1200 Balance -920 -950 Meds/Results Medications: Active Medications Generic Name Dose Route Start Last Admin Trade Name Freq PRN Reason Stop Dose Admin Acetaminophen 650 mg 03/10/24 21:25 Acetaminophen 325 Mg Tablet PO Q4H PRN Mild Pain (1-3) or Fever Amlodipine Besylate 10 mg 03/11/24 09:00 03/11/24 09:24 Amlodipine Besylate 10 Mg Tablet PO 10 mg DAILY [facility] Administration Aspirin 81 mg 03/11/24 09:00 03/11/24 09:23 Aspirin 81 Mg Enteric Tablet PO 04/10/24 08:59 81 mg DAILY [facility] Administration Atorvastatin Calcium 20 mg 03/11/24 09:00 03/11/24 09:24 Atorvastatin 20 Mg Tablet PO 20 mg DAILY [facility] Administration Bupropion HCl 300 mg 03/11/24 09:00 03/11/24 09:24 Bupropion Hcl Xl (24 Hr) 150 Mg Tabcr PO 300 mg DAILY [facility] Administration Duloxetine HCl 60 mg 03/11/24 09:00 03/11/24 09:24 Duloxetine Hcl 60 Mg Capsule.Dr PO 60 mg DAILY [facility] Administration Enoxaparin Sodium 40 mg 03/11/24 09:00 03/11/24 09:24 Enoxaparin 40 Mg/0.4 Ml Syringe SUB-Q 40 mg DAILY [facility] Administration Fluticasone Propionate 1 spray 03/11/24 09:00 03/11/24 09:22 Fluticasone Propionate 0.05% Na Spr 16 Gm Btl (*Bkc) NASAL 1 spray DAILY [facility] Administration Gabapentin 900 mg 03/11/24 09:00 03/11/24 09:24 Gabapentin 300 Mg Capsule PO 900 mg QAM [facility] Administration Gabapentin 300 mg 03/11/24 21:00 03/11/24 21:06 Gabapentin 300 Mg Capsule PO 300 mg HS [facility] Administration Sodium Chloride 1,000 mls @ 125 mls/hr 03/10/24 21:25 03/12/24 05:48 Normal Saline Iv IV CONT 125 mls/hr .Q8H [facility] Administration Metoprolol Succinate 25 mg 03/11/24 09:00 03/11/24 09:23 Metoprolol Succinate Ext Rel 25 Mg Tabcr PO 25 mg DAILY [facility] Administration Ondansetron HCl 4 mg 03/10/24 21:25 Ondansetron Inj 4 Mg/2 Ml Vial IV PUSH Q4H PRN Nausea Tizanidine HCl 4 mg 03/11/24 00:41 Tizanidine Hcl 4 Mg Tablet PO Q6H PRN muscle spasms Tramadol HCl 50 mg 03/11/24 00:41 Tramadol Hcl (*Crx) 50 Mg Tablet PO Q6H PRN Pain 4-6 Radiology Results: ITS Impressions Chest X-Ray 03/10/24 17:43 IMPRESSION: No focal infiltrate or effusion. Head/Neck CTA 03/10/24 19:42 IMPRESSION: 1. Percent stenosis per NASCET criteria is 52% within the right internal carotid artery and 0% within the left internal carotid artery. 2. Dense calcifications within the basal ganglia. 3. No intracranial aneurysmal dilatation or significant stenosis. Brain MRI 03/11/24 08:52 IMPRESSION: 1. Mild nonspecific cerebral white matter disease and pontine disease, which likely represents chronic small vessel ischemic disease. Labs Labs: Laboratory Results - last 24 hr 03/12/24 05:13 WBC 7.7 RBC 4.38 Hgb 13.6 Hct 40.3 MCV 92.0 MCH 31.1 MCHC 33.7 RDW 13.2 Plt Count 387 H MPV 8.8 Sodium 142 Potassium 4.0 Chloride 110 H Carbon Dioxide 26 Anion Gap 6 BUN 17 D Creatinine 0.70 Estim Creat Clear Calc 56 Estimated GFR > 60 Glucose 128 H Calcium 9.1 Triglycerides 138 Cholesterol 139 LDL Cholesterol Direct 71 HDL Direct 37 Vitamin B12 355.0 Folate 7.6 TSH (Reflex) 2.650 Quality VTE Prophylaxis VTE prophylaxis: pharmacologic ordered
[2024-03-12 08:00] VITALS: PULSE 71
[2024-03-12 08:19] VITALS: PULSE 65
[2024-03-12] MEDS: buPROPion HCL XL (24 HR) 150 MG TABCR 300 MG PO (08:19)
[2024-03-12] MEDS: METOPROLOL SUCCINATE EXT REL 25 MG TABCR PO (08:19)
[2024-03-12] MEDS: DULoxetine HCL 60 MG CAPSULE.DR PO (08:19)
[2024-03-12] MEDS: GABAPENTIN 300 MG CAPSULE 900 MG PO (08:19)
[2024-03-12] MEDS: ATORVASTATIN 20 MG TABLET PO (08:19)
[2024-03-12] MEDS: ENOXAPARIN 40 MG/0.4 ML SYRINGE SUB-Q (08:19)
[2024-03-12] MEDS: FLUTICASONE PROPIONATE 0.05% NA SPR 16 GM BTL (*BKC) 1 SPRAY NASAL (08:20)
[2024-03-12] MEDS: ASPIRIN 81 MG ENTERIC TABLET PO (08:20)
[2024-03-12] MEDS: amLODIPine BESYLATE 10 MG TABLET PO (08:20)
[2024-03-12 12:00] VITALS: PULSE 75
--- NOTE | 2024-03-12 14:40 | PM.DS ---
DS: Admitting Diagnosis Discharge Date 03/12 Admitting Diagnosis balance issues DS: Discharge Diagnosis Discharge Diagnosis (1) Stroke-like symptoms: Code(s): R29.90 - Unspecified symptoms and signs involving the nervous system Status: Acute Assessment and Plan: (2) Dehydration: Code(s): E86.0 - Dehydration Status: Acute Assessment and Plan: (3) JHONY (acute kidney injury): Code(s): N17.9 - Acute kidney failure, unspecified Status: Acute DS: Summary Hospital Course Hospital Course: Was admitted for stroke concerns. CTA was completed. neurology consult - statin 20 mg-will be increased to [address] No recommends Plavix, asa x 3 months- after that can stop plavix - Check fasting lipid profile, TSH, vit b12/folate Follow up with neurology in 6-8 weeks. Use walker/cane for better balance # jhony - improved with IV hydration- so her home BP meds could be restarted Status at Discharge Functional status at discharge: independent ambulation Overall status at discharge: patient is progressing back to baseline Time Spent with Patient Time attestation: Total time spent providing and/or coordinating discharge services: Time spent: Greater than 30 minutes Exam Narrative: patient is laying in bed Const: General: comfortable, no acute distress, well developed, alert, awake and average body habitus Nutritional Appearance: average body habitus Orientation/consciousness: patient oriented x3 Other: looks dry HENMT: Head: normal to inspection, normocephalic and atraumatic Ears: hearing grossly normal bilaterally Face/Nose/Sinus: normal facial exam Face and sinus: normal facial exam Eyes: General: appearance normal, both eyes and all related structures Pupils: Equal, round and reactive pupils present EOM: EOMs intact bilaterally Neck: Neck: full ROM, no lymphadenopathy and no JVD Thyroid: thyroid normal Lymphatic: no lymphadenopathy noted Resp: Effort & Inspection: normal respiratory effort and able to speak in complete sentences Auscultation: clear to auscultation bilaterally Cardio: Jugular venous distension: no JVD Rate: regular rate Rhythm: regular rhythm Heart sounds: S1 normal heart sound present and S2 normal heart sound present : General: Yes deferred Skin: Rashes: no rashes Wounds: no wounds Neuro: General: patient oriented x3 and CN's II-XI intact bilaterally Cranial nerves: Yes CN's II-XII intact bilaterally and Yes Equal, round and reactive pupils present Cognition (Neuro): normal cognition Speech: normal speech Gait exam (Neuro): Normal gait present Motor exam (neuro): 5/5 motor strength present throughout Extrem: General: normal to inspection, full ROM, no joint enlargement and no pedal edema Psych: Affect: normal affect DS: Data Data Completed and Pending Completed studies during hospitalization: head cta, brain mri Labs on day of discharge: Labs from last 24 hours 03/12/24 05:13 WBC 7.7 RBC 4.38 Hgb 13.6 Hct 40.3 MCV 92.0 MCH 31.1 MCHC 33.7 RDW 13.2 Plt Count 387 H MPV 8.8 Sodium 142 Potassium 4.0 Chloride 110 H Carbon Dioxide 26 Anion Gap 6 BUN 17 D Creatinine 0.70 Estim Creat Clear Calc 56 Estimated GFR > 60 Glucose 128 H Calcium 9.1 Triglycerides 138 Cholesterol 139 LDL Cholesterol Direct 71 HDL Direct 37 Vitamin B12 355.0 Folate 7.6 TSH (Reflex) 2.650 Discharge Plan Discharge Consulting providers: Arabella Aguilar Discharging Clinician: Natalie Polo Patient Disposition: Home, Self-Care Activity: may shower Diet: as tolerated and diabetic Discharge Instructions: You were admitted for stroke concerns. CTA was completed, MRI was completed- we discussed test results. neurology consult Statin 20 mg-will be increased to [address] Aguilar recommends Plavix, asa x 3 months- after that can stop plavix Please stop meloxicam/ibuprofen while taking Plavix. Please avoid gabapentin to prevent balance issues. - We checked fasting lipid profile, TSH, vit b12/folate Follow up with neurology in 6-8 weeks. Use walker/cane for better balance Patient Instructions: Antibiotic Form, How to Stop Smoking (DC) Stand Alone Forms: General Discharge Information Follow-up/Referrals: Arabella Aguilar MD [Physician] - 6 Weeks Discharge Medications: New atorvastatin 20 mg Tablet 40 mg PO DAILY Qty: 90 0RF clopidogrel [Plavix] 75 mg tablet 75 mg PO DAILY Qty: 90 0RF Rx Instructions: take daily for 3 months Continued metoprolol succinate 25 mg tablet extended release 24 hr 25 mg PO DAILY duloxetine 60 mg capsule,delayed release(DR/EC) 60 mg PO DAILY bupropion HCl 300 mg tablet extended release 24 hr 300 mg PO DAILY meclizine 25 mg Tablet 25 mg PO DAILY losartan 50 mg tablet 50 mg PO DAILY amlodipine 10 mg tablet 10 mg PO DAILY triamterene-hydrochlorothiazid 37.5-25 mg tablet 1 tablet PO DAILY metformin 500 mg tablet extended release 24 hr 500 mg PO DAILY Rx Instructions: 3 pills in Am and 1 pill at night zolpidem 10 mg tablet 10 mg PO HS tizanidine 4 mg tablet 4 mg PO Q6H PRN (Reason: muscle spasms) tramadol 50 mg tablet 50 mg PO Q6H PRN (Reason: Pain) aspirin 81 mg Capsule 81 mg PO DAILY fluticasone propionate [Flonase] 50 mcg/actuation [place],Suspension 1 spray INTRANASAL DAILY Rx Instructions: administer into each nostril Held gabapentin 300 mg capsule 300 mg PO DAILY Hold Instructions: Resume on 03/16/24. avoid gabapentic if able to decrease balance problems Rx Instructions: 3 pills in am and 1 pill at night Discontinued atorvastatin 20 mg tablet 20 mg PO DAILY No Action meloxicam 15 mg tablet 15 mg PO DAILY ibuprofen 600 mg Tablet 600 mg PO TID Date of admission: 03/10/24 21:28 Primary Care Provider: Hellen Chan Admitting Provider: Mamta Wu V. Attending physician on admission: Mamta Wu V. Condition: Stable Quality VTE Prophylaxis VTE prophylaxis: pharmacologic ordered Hospitalist MIPS Heart Failure (Exclusion) Patient has history of Heart Transplant or Left Ventricular Assistive Device?: No IF YES, STOP HERE Heart Failure (Qualifier) Patient has current or prior documentation of LVEF less than or equal to 40%, or mod/servere depressed LVSF?: No IF NO, STOP HERE
--- NOTE | 2024-03-12 15:39 | P.CONNEU_ITS ---
Assessment and Plan Assessment and plan (1) Stroke-like symptoms: Code(s): R29.90 - Unspecified symptoms and signs involving the nervous system Status: Acute (2) JHONY (acute kidney injury): Code(s): N17.9 - Acute kidney failure, unspecified Status: Acute Assessment and Plan: most likely due to dehydration which has now improved since her renal function has also improved. Clinically the patient also shows improvement. (3) Right carotid bruit: Code(s): R09.89 - Other specified symptoms and signs involving the circulatory and respiratory systems Status: Acute Assessment and Plan: She was found to have 52% narrowing in the right internal carotid artery the CT angiogram of the. She should be treated with 40 mg of atorvastatin and a aspirin 81 mg a day and Plavix 75 mg a day for 3 months after that we can keep her on a single anti-platelet. LDL should be kept under 65. Current LDL is 71. (4) Diabetic polyneuropathy: Code(s): E11.42 - Type 2 diabetes mellitus with diabetic polyneuropathy Status: Acute Assessment and Plan: Patient has had a EMG nerve study done at [facility] and is on gabapentin. She is under the impression the gabapentin will help the nerves grow in her feet. I informed her that this is only a symptomatic treatment and does not reverse in diabetic polyneuropathy and in fact can make her fall and hence she needs to consider her options carefully. (5) Benign positional vertigo: Code(s): H81.10 - Benign paroxysmal vertigo, unspecified ear Status: Acute Assessment and Plan: This is a longstanding problem and can also add further to her tendency to fall. His (6) Obstructive sleep apnea syndrome in adult: Code(s): G47.33 - Obstructive sleep apnea (adult) (pediatric) Status: Acute Assessment and Plan: the patient states that she has been on CPAP for many years. I would suggest her to follow-up with the [facility]. (7) Ataxia: Code(s): R27.0 - Ataxia, unspecified Status: Acute Assessment and Plan: Patient does tend to veer to the left side. Based upon the evaluation this would be most likely combination of peripheral neuropathy, deconditioning and a peripheral vascular pathology. Exercise and possible physical therapy and gait strengthening would be helpful. I spoke to the patient and her about it. (8) Falls frequently: Code(s): R29.6 - Repeated falls Status: Acute Assessment and Plan: The patient tends to fall once or twice a month. Safety precautions with the use of walker and cane are recommended. Plan I discussed regarding the stroke prevention plan and exercise plan as above. I shall be glad to see her in my office in 6-8 weeks time. Safety precautions are important. Her was here with the time of discussion and a we had lengthy discussion about all the issues B Given above. I communicated these to Mrs. Polo hospitalist. Consult date: 03/12/24 HPI: Lorri Hutchinson is a 73 year old female Admitted to the hospital with history of weakness and tendency to fall and slurring of speech and confusional state. She was found to have a white cell count of 13.0 and creatinine of 1.6 and BUN was also elevated. Her GFR was decreased to 33. She was thought to be dehydrated. CT angiogram of the head and neck shows 52% narrowing of the right internal carotid artery and 0% on the left side previous emergency room physician thought that she was having symptoms of transient ischemic attack in the setting of dehydration and was given treatment with IV hydration and now her renal function is improved. She overall she is doing much better. Patient was under care of a neurologist in [place] since he has recently transferred over to this area. She was seeing a neurologist Dr. Aragon in the [facility]. She has history of diabetes mellitus for of 5-10 years or so and was diagnosed to have diabetic polyneuropathy. She was given gabapentin. She is also on multiple medications. She also sees a mica layer for possible cardiac disease although she has not had any myocardial infarction. She was told that she has right carotid bruit. She has been on a statin. She also has occasional vertigo thought to be due to inner ear problem. Also history of obstructive s leep apnea syndrome on CPAP. She smokes half pack of cigarettes a day but according to the patient and her she does not smoke all the time and will give up after her heart the cigarette and she is trying to lower the amount of smoking. She has a cane to get around Dharmesh to follow once or twice a month. She has stress incontinence but does not have incontinence without her knowledge. She is however independent with activities of daily living. Before she came in she was having some numbness in the left side of the face but mostly around the lip but she thought that she is also having numbness around both sides of the mouth but more on the left side. Almost everything tends to be worse on the left side of the body and even when she has vertigo she tends to lean or fall to the left side. Review of Systems Review of Systems: No history of recent major head trauma or febrile illness. She does claim compliance to the CPAP. She was following with a neurologist, and mica layer in [place] before she moved over here. She lives close to [facility]. Prior to admission she did not know her whereabouts was indeed confused according to her . However she did not have any passing out spell. No other symptoms. All systems reviewed & are unremarkable except as noted in HPI and below PMFSH Past Medical History Medical History (Updated 03/12/24 @ 15:50 by Arabella Aguilar MD) Ataxia Benign positional vertigo Diabetes Diabetic polyneuropathy Falls frequently Hypertension Obstructive sleep apnea syndrome in adult Right carotid bruit Family History Family History (Updated 03/10/24 @ 22:40 by Analilia Mckenna RN) Father Chronic obstructive pulmonary disease Sibling Cerebrovascular accident Social History Social History (Updated 03/10/24 @ 21:40 by Casey Saenz MD) Smoking packs per day: 0.5 Smoking cigarettes per day: 10.0 Smoking status: Current every day smoker Tobacco type: cigarettes Substance use: current Substance use type: does not use Do You Feel Safe in your Home?: Yes Lack of Transportation: No Lack of Food: Never True Current Housing: I Have Housing Concerned About Future Housing: No Difficulty Paying Gas/Electric Bills: No Difficulty Paying for Meds: No Currently Unemployed: No Education: Trade/Vocational Certificate Difficulty w/ Childcare or Family Care: No Spiritual care concerns: No Meds Home Medications and Allergies Home Medications Medication Instructions Recorded Confirmed Type amlodipine 10 mg tablet 10 mg PO DAILY 03/10/24 03/10/24 History aspirin 81 mg capsule 81 mg PO DAILY 03/10/24 03/10/24 History bupropion HCl 300 mg 24 hr tablet, 300 mg PO DAILY 03/10/24 03/10/24 History extended release duloxetine 60 mg capsule,delayed 60 mg PO DAILY 03/10/24 03/10/24 History release fluticasone propionate 50 1 spray intranasal DAILY allergy 03/10/24 03/10/24 History mcg/actuation nasal spray,suspension gabapentin 300 mg capsule 300 mg PO DAILY 03/10/24 03/10/24 History ibuprofen 600 mg tablet 600 mg PO TID pain 03/10/24 03/10/24 History losartan 50 mg tablet 50 mg PO DAILY 03/10/24 03/10/24 History meclizine 25 mg tablet 25 mg PO DAILY 03/10/24 03/10/24 History meloxicam 15 mg tablet 15 mg PO DAILY 03/10/24 03/10/24 History metformin 500 mg tablet,extended 500 mg PO DAILY 03/10/24 03/10/24 History release 24 hr metoprolol succinate 25 mg 25 mg PO DAILY 03/10/24 03/10/24 History tablet,extended release 24 hr tizanidine 4 mg tablet 4 mg PO Q6H PRN muscle spasms 03/10/24 03/10/24 History tramadol 50 mg tablet 50 mg PO Q6H PRN Pain 03/10/24 03/10/24 History triamterene 37.5 1 tablet PO DAILY 03/10/24 03/10/24 History mg-hydrochlorothiazide 25 mg tablet zolpidem 10 mg tablet 10 mg PO HS 03/10/24 03/10/24 History atorvastatin 20 mg tablet 40 mg PO DAILY #90 tabs 03/12/24 Rx clopidogrel 75 mg tablet (Plavix) 75 mg PO DAILY #90 tabs 03/12/24 Rx Allergies Allergy/AdvReac Type Severity Reaction Status Date / Time codeine AdvReac Hives Verified 03/05/23 13:10 Vital Signs Vital Signs - 24 hr 03/11/24 16:00 03/11/24 20:00 03/11/24 20:00 Temperature Pulse Rate 82 82 82 Respiratory Rate 18 Blood Pressure Pulse Oximetry 96 Oxygen Delivery Room Air 03/11/24 21:04 03/12/24 00:00 03/12/24 04:00 Temperature 97.8 F Pulse Rate 73 66 67 Respiratory Rate 16 Blood Pressure 118/57 L Pulse Oximetry 95 Oxygen Delivery 03/12/24 05:48 03/12/24 08:19 03/12/24 08:00 Temperature 97.6 F Pulse Rate 65 65 71 Respiratory Rate 16 Blood Pressure 140/66 Pulse Oximetry 96 Oxygen Delivery 03/12/24 12:00 Temperature Pulse Rate 75 Respiratory Rate Blood Pressure Pulse Oximetry Oxygen Delivery Exam Const: General: cooperative, well developed and alert Orientation/consciousness: patient oriented x3 HENMT: Head: atraumatic Mouth: Yes oropharynx normal Other: Mallampati score was 2-3 on a scale of 4. Tongue appears somewhat large. There is a right carotid bruit. Eyes: Alignment and Position: position normal Pupils: Equal, round and reactive pupils present EOM: EOMs intact bilaterally Neck: Neck: supple Other: Right carotid bruit which is also audible over right call subclavian and I suspect somewhat over the right aortic area but appears louder over the carotid region. Resp: Effort & Inspection: normal respiratory effort Cardio: Rhythm: regular rhythm Neuro: General: patient oriented x3 Cranial nerves: Yes CN's II-XII intact bilaterally, Yes facial sensation intact/muscles of mastication intact, Yes Equal, round and reactive pupils present, Yes facial symmetry and Yes Midline tongue present Cognition (Neuro): normal cognition Speech: normal speech Motor exam (neuro): 5/5 motor strength present throughout Coordination: [id number] test normal and Normal rapid alternating movements of the distal upper extremity present (Neuro) Other: Distal sensory loss to vibration and a touch and temperature and legs in stocking pattern. When she we tried to have her walk with supervision from the nursing staff she tends to veer to the left side although she did manage to walk in the room independently for short distance. Extrem: Other: Loss of muscle bulk noted in both lower limbs. Deep tendon reflexes were 1 to 2/4 except ankle jerks were absent. No trophic changes were seen in the lower limbs. Psych: Mental Status: mental status grossly normal Affect: normal affect Results Labs 03/12/24 05:13 03/12/24 05:13 Labs: Short CBC 03/12/24 Range/Units 05:13 WBC 7.7 (4.5-10.0) K/mm3 Hgb 13.6 (12.0-15.0) g/dL Hct 40.3 (37.0-47.0) % Plt Count 387 H (150-375) k/mm3 BMP 03/12/24 05:13 Sodium 142 Potassium 4.0 Chloride 110 H Carbon Dioxide 26 BUN 17 D Creatinine 0.70 Glucose 128 H Calcium 9.1 Imaging Attestation: I personally reviewed and interpreted this imaging study as follows: ( MRI of the brain) My impression: mild chronic ischemic changes noted on both sides in cerebral hemispheres. No significant changes noted in the brainstem area. Radiologist's impression: Same
== END 2024-03-12 15:20 | disposition home or self-care (01) ==
LOC: ANHED 21:43 → ANH2MED 21:44
PROVIDERS: Nurse Practitioner; Admitting Provider Internal Medicine; Emergency Provider Emergency Medicine; Visit Provider Internal Medicine
DX: R29.818 Other symptoms and signs involving the nervous system (principal); R29.6 Repeated falls; N17.9 Acute kidney failure, unspecified; E86.0 Dehydration; R09.89 Other specified symptoms and signs involving the circulatory and respiratory systems; I65.21 Occlusion and stenosis of right carotid artery; E11.42 Type 2 diabetes mellitus with diabetic polyneuropathy; F17.210 Nicotine dependence, cigarettes, uncomplicated; H81.10 Benign paroxysmal vertigo, unspecified ear; G47.33 Obstructive sleep apnea (adult) (pediatric); Z99.89 Dependence on other enabling machines and devices; I10 Essential (primary) hypertension; F41.1 Generalized anxiety disorder; E78.5 Hyperlipidemia, unspecified; Z79.82 Long term (current) use of aspirin; Z79.84 Long term (current) use of oral hypoglycemic drugs; Z79.899 Other long term (current) drug therapy
CPT/HCPCS: 36415; 70496; 70498; 70553; 71046; 80048; 80053; 80061; 81003; 82607; 82746; 82948; 84443; 85025; 85027; 93005; 96360; 96361; 96372; 99285; A9270; A9577; G0378; J1650; J7030; Q9967

== ENCOUNTER 2024-09-30 08:26 | Emergency (ER) | payer OTHER, SELFPAY ==
--- NOTE | ~2024-09-30 | CT_ITS ---
CLINICAL INDICATION: Right flank pain COMPARISON: None. TECHNIQUE: Multiple contiguous axial images of the abdomen and pelvis were performed without the admi nistration of intravenous contrast The dose-length product (DLP) was 204.69 mGy-cm. Automated exposure control and iterative reconstruction technique were employed. FINDINGS/OBSERVATIONS: Visualized lower thorax: Trace bibasilar atelectasis. The remainder of the bilateral lung bases are clear. The heart is borderline enlarged, without pericardial effusion. Small hiatal hernia is present. Liver: The liver demonstrates homogeneous attenuation and is enlarged measuring 19 cm in longitudinal dimens ion. Gallbladder and biliary system: The gallbladder is only minimally distended, and otherwise unremarkable. Pancreas: Limited evaluation of the pancreas secondary to the lack of intravenous contrast. Spleen: The spleen demonstrates homogeneous attenuation and is not enlarged. Kidneys: Mild right-sided hydroureteronephrosis extending to the distal right ureter where a 2 mm calculus is present. Multiple nonobstructing stones within the left kidney, the largest in the interpolar region measuring 8 mm. No left-sided hydroureteronephrosis is appreciated. Adrenal glands: Unremarkable. Gastrointestinal tract: Colonic diverticulosis without surrounding inflammatory change. Appendix: The appendix is not definitively visualized. However, no pericecal inflammatory change is identified suggest the presence of acute appendicitis. Vasculature: Trace calcified atherosclerotic disease. Lymph nodes: Limited evaluation without intravenous contrast. Pelvic structures: The bladder is only minimally distended, and otherwise unremarkable. The uterus is anteverted and anteflexed, and somewhat enlarged for a patient of this age. Body wall and musculoskeletal: Age-appropriate degenerative disease within the lower thoracic and lumbosacral spine. IMPRESSION: Mild right-sided hydroureteronephrosis secondary to a 2 mm calculus within the distal right ureter. Multiple nonobstructing stones within the left kidney. Reviewed, dictated and finalized at location A.
[2024-09-30 08:30] VITALS: BP 114/71; PULSE 80; RESP 16; TEMP 37.1; O2SAT 96
--- OUTSIDE RECORDS SUMMARY | 2024-09-30 08:31 | XMS_ITS | Clinical Summary ---
Author Organization [facility] Address [address] [place] [address] Care Team Providers Care Sas Clinical Programmer Name Role Phone Hellen Chan MD Primary Care Provider [phone] Lupillo Stubbs MD Unavailable [phone] Allergies Active Allergy Reactions Criticality Noted Date Comments Codeine Hives Medium 12/29/2019 Hydrocodone-Acetaminophen Itching Low 03/10/2011 Varenicline Hives,Urticaria High 03/10/2011 Medications zolpidem (AMBIEN) 10 mg tablet Take 5 mg by mouth nightly as needed for sleep 11/29/19 20 Active famotidine (PEPCID AC MAXIMUM STRENGTH ORAL) Take 1 tablet by mouth as needed 11/16/19 20 Active Contour Next Test Strips strip 03/21/20 20 Active fluticasone propionate (FLONASE) 50 mcg/actuation nasal sprayIndications:A llergic Conjunctivitis Administer 2 sprays into affected nostril(s) nightly 02/08/20 20 Active Microlet Lancet misc 03/22/20 20 Active calcium carbonate (TUMS) 500 mg calcium (200 mg of elemental calcium) chewable tablet Take 1 tablet by mouth as needed for indigestion or heartburn Active amLODIPine (NORVASC) 10 mg tabletIndications: hypertension Take 1 tablet (10 mg total) by mouth every morning Crush medication for 1 week 05/17/19 21 Active atorvastatin (LIPITOR) 20 mg tabletIndications: hyperlipidemia Take 1 tablet (20 mg total) by mouth every morning Crush medication for 1 week 05/17/19 21 Active losartan (COZAAR) 50 mg tabletIndications: hypertension Take 1 tablet (50 mg total) by mouth every morning 05/17/19 Active meclizine (ANTIVERT) 12.5 mg tabletIndications: Vertigo Take 1 tablet (12.5 mg total) by mouth as needed for dizziness Crush medication for 1 week 30 tablet 05/17/19 Active metFORMIN (GLUCOPHAGE) 500 mg tabletIndications: type 2 diabetes mellitus Take 1 tablet (500 mg total) by mouth 3 (three) times a day 500mg in AM 100mg in PM; Crush medication for 1 week 05/17/19 Active montelukast (SINGULAIR) 10 mg tabletIndications: Seasonal Allergic Rhinitis Take 1 tablet (10 mg total) by mouth nightly Crush medication for 1 week 05/17/19 Active triamterene-hydroC HLOROthiazide 37.5-25 mg per tablet Take 1 tablet/capsule by mouth every morning Blood pressure; Crush medication for 1 week 05/17/19 Active vit A,C and Z-jpeujp-bvwbbhzl (OCUVITE with LUTEIN) 1,000 unit-200 mg-60 unit-2 mg tablet Take 1 tablet by mouth every morning May restart on 05/2405/24/19 Active oxyCODONE (ROXICODONE) solution 5 mg/5 mLIndications:Pain Take 5 mL (5 mg total) by mouth every 6 (six) hours as needed for pain 50 mL 05/18/19 Active polyethylene glycol (MIRALAX) 17 gram packetIndications: constipation Take 1 packet (17 g total) by mouth daily 30 packet 05/18/19 21 Active FLUoxetine (PROzac) solution 20 mg/5 mL Take 10 mL (40 mg total) by mouth daily for 7 days 70 mL 05/18/19 21 Active FLUoxetine (PROzac) 40 mg capsuleIndications :depression Take 1 capsule (40 mg total) by mouth every morning Start on 05/24 when able to take whole pills 05/24/19 21 Active omeprazole (PriLOSEC) 40 mg capsule Take 1 capsule (40 mg total) by mouth daily Open capsule and take in applesauce 30 capsule 05/18/19 Active promethazine (PHENERGAN) 25 mg tablet Take 1 tablet (25 mg total) by mouth every 6 (six) hours as needed for nausea or vomiting Crush medication until 05/24 20 tablet 2 05/18/19 21 Active ibuprofen (ADVIL,MOTRIN) suspension 100 mg/5 mL Take 20 mL (400 mg total) by mouth every 4 (four) hours as needed for pain 150 mL 05/18/19 21 Active lidocaine (ASPERCREME) 4 % adhesive patch,medicated Place 1 patch on the skin daily as needed (pain) 10 patch 05/18/19 21 Active ondansetron ODT (ZOFRAN-ODT) 4 mg disintegrating tablet Take 1 tablet (4 mg total) by mouth every 8 (eight) hours as needed for nausea or vomiting 20 tablet 2 05/18/19 21 Active simethicone (Gas-X Extra Strength) 125 mg chewable tablet Take 1 tablet (125 mg total) by mouth every 6 (six) hours as needed for flatulence (Gas/bloating) 30 tablet 05/18/19 21 Active Active Problems Problem Noted Date Diagnosed Date Hiatal hernia with GERD 02/13/2020 Overview (02/13/2020): Added automatically from request for surgery [id number] Immunizations Immunization Administration Dates Next Due Influenza, Unspecified 02/02/2020 Surgical History Surgery Date Site/Laterality Comments HAND SURGERY Right KNEE ARTHROSCOPY Right HAND SURGERY 02/02/2020 - 03/03/2020 KIDNEY STONE SURGERY x4 Medical History Medical History Date Comments GERD (gastroesophageal reflux disease) Type 2 diabetes mellitus (HCC) Hypertension Depression PONV (postoperative nausea and vomiting) Motion sickness Sleep apnea HLD (hyperlipidemia) Hiatal hernia Nephrolithiasis Vertigo Family History Medical History Relation Name Comments Diabetes Brother AICD Father Atrial fibrillation Father Diabetes Father Heart attack Mother Heart disease Mother Hypertension Mother Anesthesia problems Neg Hx Relation Name Status Comments Brother Father Mother Social History Tobacco Use Types Packs/Day Years Used Date Smoking Tobacco: Every Day Cigarettes Smokeless Tobacco: Current Alcohol Use Standard Drinks/Week Comments Not Currently 0 (1 standard drink = 0.6 oz pur e alcohol) Comments No Sex and Gender Information Value Date Recorded Sex Assigned at Not on file Legal Sex Female 9:18 AM CDT Gender Identity Female 12/27/2019 8:55 AM CDT Sexual Orientation Straight 12/27/2019 8: 55 AM CDT Obstetrics History Last Filed Vital Signs Vital Sign Reading Time Taken Comments Blood Pressure 137/82 06/15/2020 1:45 PM [employer]LE [employer] Pulse 83 06/15/2020 1:45 PM [employer] Temperature 36.2 C (97.1 F) 06/15/2020 1:45 PM [employer]LE [employer] Respiratory Rate 20 05/19/2020 8:10 AM NEEDLE [employer]ER Oxygen Saturation 88% 05/19/2020 10: 40 AM NEEDLE POLISHER Inhaled Oxygen Concentration - - Weight 66.6 kg (146 lb 12.8 oz) 06/15/2020 1:45 PM [employer]LE [employer] Height 154.9 cm (5' 1) 06/15/2020 1:45 PM NEEDLE [employer] Body Mass Index 27.74 06/15/2020 1:45 PM NEEDLE POLISHER Plan of Treatment Not on file Insurance [facility] Advance Directives For more information, please contact: [phone] * Full Code (Latest Code Status on File) Date Activated Date Inactivated Comments 05/16/2020 5:01 PM 05/19/2020 5:53 PM Care Teams Sas Clinical Programmer Relationship Specialty Start Date End Date Hellen Chan MD [address] [place] [address] PCP - General Family Medicine 12/09/19 Lupillo Stubbs MD [address] [place] [address] Consulting Physician Gastroenterology 05/17/20
--- OUTSIDE RECORDS SUMMARY | 2024-09-30 08:31 | XMS_ITS | Continuity of Care Document ---
Author Organization [facility] Address [address] [place] [address] Phone Care Team Providers Care Dialysis Biomed Technician Name Role Phone Umberto Glover PA-C Unavailable Unavailabl e Allergies, Adverse Reactions, Alerts Substance Reaction Status Criticality codeine Active No Information codeine Active No Information Medications Medication Instructions Dosage Effective Dates (start - stop) Status Comments diclofenac sodium 75 mg tablet,delayed release take 1 tablet by oral route 2 times every day 75 MG - Active cephalexin 500 mg capsule take 1 capsule by oral route every 6 hours 500 MG - Active duloxetine 60 mg capsule,delayed release - Active bupropion HCl XL 300 mg 24 hr tablet, extended release - Active gabapentin 300 mg capsule - Active atorvastatin 20 mg tablet - Active losartan 50 mg tablet - Active metformin 500 mg tablet - Active meclizine 25 mg tablet - Active Flonase Allergy Relief 50 mcg/actuation nasal spray,suspension - Active omeprazole 20 mg capsule,delayed release take 1 capsule by oral route every day before a meal 20 MG - Active metformin 1,000 mg tablet take 1 tablet by oral route 2 times every day with morning and evening meals 1000 MG - Active triamterene 37.5 mg-hydrochlorothiazi de 25 mg tablet take 1 tablet by oral route every day 1.00 tablet - Active lovastatin 20 mg tablet take 1 tablet by oral route every day with the evening meal 20 MG - Active amlodipine 5 mg tablet take 1 tablet by oral route every day 5 MG - Active zolpidem 5 mg tablet take 2 tablet by oral route every day at bedtime 10 MG - Active Procedures Procedure Date Triamcinolone acet inj NOS Drugs unclassified injection DRAIN/INJECT JOINT/BURSA OFFICE/OUTPATIENT VISIT EST Hyalgan/supartz inj per dose Drugs unclassified injection DRAIN/INJECT JOINT/BURSA POSTOP FOLLOW-UP VISIT Hyalgan/supartz inj per dose Drugs unclassified injection DRAIN/INJECT JOINT/BURSA POSTOP FOLLOW-UP VISIT Hyalgan/supartz inj per dose Drugs unclassified injection DRAIN/INJECT JOINT/BURSA POSTOP FOLLOW-UP VISIT RADEX KNE 3 VIEWS Triamcinolone acet inj NOS Drugs unclassified injection DRAIN/INJECT JOINT/BURSA OFFICE/OUTPATIENT VISIT EST Triamcinolone acet inj NOS Drugs unclassified injection DRAIN/INJECT JOINT/BURSA OFFICE/OUTPATIENT VISIT EST RADEX KNE COMPL 4/MORE VIEWS MANUAL APPL STRESS PFRMD PHYS JOINT RADI OGRAPHY Triamcinolone acet inj NOS Drugs unclassified injection DRAIN/INJECT JOINT/BURSA Triamcinolone acet inj NOS Drugs unclassified injection DRAIN/INJECT JOINT/BURSA OFFICE/OUTPATIENT VISIT EST POSTOP FOLLOW-UP VISIT POSTOP FOLLOW-UP VISIT OFFICE/OUTPATIENT VISIT EST INCISION OF TENDON SHEATH OFFICE/OUTPATIENT VISIT EST Triamcinolone acet inj NOS Drugs unclassified injection INJ TENDON SHEATH/LIGAMENT RADEX WRST COMPL MINIMUM 3 VIEWS 2021 OFFICE/OUTPATIENT VISIT EST POSTOP FOLLOW-UP VISIT POSTOP FOLLOW-UP VISIT POSTOP FOLLOW-UP VISIT POSTOP FOLLOW-UP VISIT RADEX FNGR MINIMUM 2 VIEWS POSTOP FOLLOW-UP VISIT HFO w/o joints PF REPAIR WRIST JOINTS RADEX FNGR MINIMUM 2 VIEWS Triamcinolone acet inj NOS DRAIN/INJECT JOINT/BURSA OFFICE/OUTPATIENT VISIT EST POSTOP FOLLOW-UP VISIT POSTOP FOLLOW-UP VISIT INCISION OF TENDON SHEATH OFFICE/OUTPATIENT VISIT EST OFFICE/OUTPATIENT VISIT EST Triamcinolone acet inj NOS Drugs unclassified injection INJ TENDON SHEATH/LIGAMENT OFFICE/OUTPATIENT VISIT EST OFFICE/OUTPATIENT VISIT EST POSTOP FOLLOW-UP VISIT POSTOP FOLLOW-UP VISIT POSTOP FOLLOW-UP VISIT POSTOP FOLLOW-UP VISIT RADEX FNGR MINIMUM 2 VIEWS POSTOP FOLLOW-UP VISIT REPAIR WRIST JOINTS OFFICE/OUTPATIENT VISIT EST OFFICE/OUTPATIENT VISIT EST OFFICE/OUTPATIENT VISIT EST RADEX ITALO COMPL MINIMUM 2 VIEWS OFFICE/OUTPATIENT VISIT EST OFFICE/OUTPATIENT VISIT EST OFFICE/OUTPATIENT VISIT EST POSTOP FOLLOW-UP VISIT POSTOP FOLLOW-UP VISIT POSTOP FOLLOW-UP VISIT RADEX FNGR MINIMUM 2 VIEWS RADEX FNGR MINIMUM 2 VIEWS RADEX FNGR MINIMUM 2 VIEWS OFFICE/OUTPATIENT VISIT NEW Advance Directives Directive Yes / No Effective Date File Name Other Directive No N/A N/A WARNING:The information contained in this section is historical and is provided for information only and does not constitute a legal document or any assurance that the information is still accurate. Please verify the information with the rebolledo of the legal document before using it for clinical purposes. Encounters Encounter Description Practice Location Reason(s) For Visit Diagnoses Date Provider Providers Copied on Encounter OFFICE/OUTPA TIENT VISIT EST [facility], [address], [place], [address], [place] tel:[phone] [facility] Bilateral primary osteoarthritis of knee 5 Belen Shipman. [address], [place], [place], [address], [place]. tel:[phone] Referring Provider: Hellen Aguilar, [address] [place], [address]. tel:[phone] [facility], [address], [place], [address], [place] tel:[phone] [facility] Bilateral primary osteoarthritis of knee Aug- 5 Belen Shipman. [address], [place], [place], [address], [place]. tel:[phone] Referring Provider: Hellen Aguilar, [address] [place], [address]. tel:[phone] [facility], [address], [place], [address], [place] tel:[phone] [facility] Bilateral primary osteoarthritis of knee Aug- 5 Harry Pike. [address], [place], [place], [address], [place]. tel:[phone] Referring Provider: Hellen Aguilar, [address] [place], [address]. tel:[phone] [facility], [address], [place], [address], [place] tel:[phone] [facility] Bilateral primary osteoarthritis of knee Aug- 5 Belen Shipman. [address], [place], [place], [address], [place]. tel:[phone] Referring Provider: Hellen Aguilar, [address] [place], [address]. tel:[phone] OFFICE/OUTPA TIENT VISIT EST [facility], [address], [place], [address], [place] tel:[phone] [facility] Bilateral primary osteoarthritis of knee Fe 5 Belen Shipman. [address], [place], [place], [address], [place]. tel:[phone] Referring Provider: Hellen Aguilar, [address] [place], [address]. tel:[phone] OFFICE/OUTPA TIENT VISIT EST [facility], [address], [place], [address], [place] tel:[phone] [facility] Bilateral primary osteoarthritis of knee 4 Иван Billingsley. [address], [place], [address], [place]. tel:[phone] Referring Provider: Hellen Aguilar, [address] [place], [address]. tel:[phone] OFFICE/OUTPA TIENT VISIT EST [facility], [address], [place], [address], [place] tel:[phone] [facility] Bilateral chronic knee painBilateral primary osteoarthritis of kneeBody mass index [BMI] 27.0-27.9, adult 4 Rip Rodriguez . [address], [place], [place], [address]. tel:[phone] Referring Provider: Hellen Aguilar, [address] [place], [address]. tel:[phone] [facility], [address], [place], [address], [place] tel:[phone] [facility] Radial styloid tenosynovitis [de Quervain] 2 Daisy Mckenzie. [address] [facility], [place], [place], [address]. tel:[phone] Referring Provider: Hellen Aguilar, [address] [place], [address]. tel:[phone] [facility], [address], [address], [place] tel:[phone] [facility] Radial styloid tenosynovitis [de Quervain] 2 Daisy Mckenzie. [address] [place], [place], [address]. tel:[phone] [facility], [address], [address], [place] tel:[phone] [facility] No Information 2 Daisy Mckenzie. [address] [place], [place], [address]. tel:[phone] OFFICE/OUTPA TIENT VISIT EST [facility], [address] [address], [place], [address], [place] tel:[phone] [facility] Degenerative tear of triangular fibrocartilage complex (TFCC) of left wristRadial styloid tenosynovitis [de Quervain]Unilat eral primary osteoarthritis of first carpometacarpal joint, left handBody mass index [BMI] 26.0-26.9, adult 2 Daisy Mckenzie. [address] [place], [place], [address]. tel:[phone] Referring Provider: Hellen Aguilar, [address] [place], [address]. tel:[phone] [facility], [address], [address], [place] tel:[phone] [facility] Radial styloid tenosynovitis [de Quervain] Oct-2 2 Daisy Mckenzie. [address] [facility], [place], [place], [address]. tel:[phone] OFFICE/OUTPA TIENT VISIT EST [facility], [address] [address], [place], [address], [place] tel:[phone] [facility] Radial styloid tenosynovitis [de Quervain]Unilat eral primary osteoarthritis of first carpometacarpal joint, left handBody mass index [BMI] 27.0-27.9, adultDegenerati ve tear of triangular fibrocartilage complex (TFCC) of left wrist Aug-0 2 Daisy Mckenzie. [address] [facility], [place], [place], [address]. tel:[phone] Referring Provider: Hellen Aguilar, [address] [place], [address]. tel:[phone] OFFICE/OUTPA TIENT VISIT EST [facility], [address] [address], [place], [address], [place] tel:[phone] [facility] Unilateral primary osteoarthritis of first carpometacarpal joint, left hand Jul-2 2 Daisy Mckenzie. [address] [place], [place], [address]. tel:[phone] Referring Provider: Hellen Aguilar, [address] [place], [address]. tel:[phone] [facility], [address] [address], [place], [address], [place] tel:[phone] [facility] Unilateral primary osteoarthritis of first carpometacarpal joint, left hand Feb-1 0- 2 Daisy Mckenzie. [address] [place], [place], [address]. tel:[phone] Referring Provider: Hellen Aguilar, [address] [place], [address]. tel:[phone] [facility], [address] [address], [place], [address], [place] tel:[phone] [facility] Unilateral primary osteoarthritis of first carpometacarpal joint, left handBody mass index [BMI] 27.0-27.9, adult 2 Daisy Mckenzie. [address] [facility], [place], [place], [address]. tel:[phone] Referring Provider: Hellen Aguilar, [address] [place], [address]. tel:[phone] [facility], [address] [address], [place], [address], [place] tel:[phone] [facility] Unilateral primary osteoarthritis of first carpometacarpal joint, left hand 1 Daisy Mckenzie. [address] [place], [place], [address]. tel:[phone] Referring Provider: Hellen Aguilar, [address] [place], [address]. tel:[phone] [facility], [address], [address], [place] tel:[phone] [facility] Osteoarthritis of left thumb 1 Daisy Mckenzie. [address] [facility], [place], [place], [address]. tel:[phone] Referring Provider: Hellen Aguilar, [address] [place], [address]. tel:[phone] [facility], [address], [address], [place] tel:[phone] [facility] Osteoarthritis of left thumbPain in left finger(s) 1 Daisy Mckenzie. [address] [place], [place], [address]. tel:[phone] [facility], [address], [address], [place] tel:[phone] [facility] Unilateral primary osteoarthritis of first carpometacarpal joint, left hand 1 Daisy Mckenzie. [address] [facility], [place], [place], [address]. tel:[phone] OFFICE/OUTPA TIENT VISIT EST [facility], [address] [address], [place], [address], [place] tel:[phone] [facility] Pain in left finger(s)Osteoa rthritis of left thumb 1 Daisy Mckenzie. [address] [facility], [place], [place], [address]. tel:[phone] [facility], [address] [address], [place], [address], [place] tel:[phone] [facility] Radial styloid tenosynovitis [de Quervain] 0 Daisy Mckenzie. [address] [facility], [place], [place], [address]. tel:[phone] [facility], [address], [address], [place] tel:[phone] [facility] Radial styloid tenosynovitis [de Quervain] 0 Daisy Mckenzie. [address] [place], [place], [address]. tel:[phone] [facility], [address] [address], [place], [address], [place] tel:[phone] [facility] Radial styloid tenosynovitis [de Quervain] 0 Daisy Mckenzie. [address] [place], [place], [address]. tel:[phone] OFFICE/OUTPA TIENT VISIT EST [facility], [address] [address], [place], [address], [place] tel:[phone] [facility] De Quervain's tenosynovitis, right 0 Daisy cMkenzie. [address] [place], [place], [address]. tel:[phone] OFFICE/OUTPA TIENT VISIT EST [facility], [address] [facility] [facility] [address], [place], [address], [place] tel:[phone] [facility] De Quervain's tenosynovitis, rightUnil primary osteoarth of first carpometacarp joint, r hand Aug- 0 Daisy Mckenzie. [address] , [place], [place], [address]. tel:[phone] OFFICE/OUTPA TIENT VISIT EST [facility], [address] [address], [place], [address], [place] tel:[phone] [facility] Unil primary osteoarth of first carpometacarp joint, r handDe Quervain's tenosynovitis, right Jun- 0 Daisy Mckenzie. [address] , [place], [place], [address]. tel:[phone] OFFICE/OUTPA TIENT VISIT EST [facility], [address] [address], [place], [address], [place] tel:[phone] [facility] De Krish's tenosynovitis, right May- 0 Odell Obrien. [address] [facility] [address], [place], [place], [address]. tel:[phone] [facility], [address] [facility] [facility], [place], [address], [place] tel:[phone] [facility] Unil primary osteoarth of first carpometacarp joint, r hand 0 Daisy Mckenzie. [address] [facility], [place], [place], [address]. tel:[phone] [facility], [address] [address], [place], [address], [place] tel:[phone] [facility] Unil primary osteoarth of first carpometacarp joint, r hand Nov-2 7-201 9 Daisy Mckenzie. [address] [facility], [place], [place], [address]. tel:[phone] [facility], [address] [address], [place], [address], [place] tel:[phone] [facility] Unil primary osteoarth of first carpometacarp joint, r hand Mar- 9 Daisy Mckenzie. [address] [facility], [place], [place], [address]. tel:[phone] [facility], [address], [address], [place] tel:[phone] [facility] Unil primary osteoarth of first carpometacarp joint, r hand 9 Daisy Mckenzie. [address] [place], [place], [address]. tel:[phone] [facility], [address] [address], [place], [address], [place] tel:[phone] [facility] Pain in right finger(s)Osteoa rthritis of right thumb 9 Daisy Mckenzie. [address] [place], [place], [address]. tel:[phone] [facility], [address], [address], [place] tel:[phone] [facility] Unil primary osteoarth of first carpometacarp joint, r hand 0 9 Daisy Mckenzie. [address] [place], [place], [address]. tel:[phone] OFFICE/OUTPA TIENT VISIT EST [facility], [address], [address], [place] tel:[phone] [facility] Osteoarthritis of right thumbOsteoarthr itis of left thumb 9 Daisy Mckenzie. [address] [place], [place], [address]. tel:[phone] OFFICE/OUTPA TIENT VISIT EST [facility], [address] [address], [place], [address], [place] tel:[phone] [facility] Capsulitis of left shoulderAcute pain of left shoulder 9 Li Harris. [address] [facility] [address], [place], [place], [address]. tel:[phone] OFFICE/OUTPA TIENT VISIT EST [facility], [address], [place], [address], [place] tel:[phone] [facility] Capsulitis of left shoulder 9 Haresh Pillai. [address] [facility] [address], [place], [place], [address]. tel:[phone] OFFICE/OUTPA TIENT VISIT EST [facility], [address] [address], [place], [address], [place] tel:[phone] [facility] Acute pain of left shoulderTendino shreya of left rotator cuff 9 Hernandezcamilo Milligan. [address] [facility] [address] [facility] [address], [place], [place], [address]. tel:[phone] Referring Provider: Hellen Aguilar, [address] [place], [address]. tel:[phone] OFFICE/OUTPA TIENT VISIT EST [facility], [address] [address], [place], [address], [place] tel:[phone] [facility] Osteoarthritis of right thumb 8 Daisy Mckenzie. [address] [facility], [place], [place], [address]. tel:[phone] OFFICE/OUTPA TIENT VISIT EST [facility], [address] [facility] [address], [place], [address], [place] tel:[phone] [facility] Giant cell tumor of tendon sheathOsteoarth ritis of left thumbOsteoarthr itis of right thumb 0-201 8 Daisy Mckenzie. [address] [facility], [place], [place], [address]. tel:[phone] [facility], [address], [address], [place] tel:[phone] [facility] Giant cell tumor of tendon sheath 8 Daisy Mckenzie. [address] [facility], [place], [place], [address]. tel:[phone] [facility], [address] [address], [place], [address], [place] tel:[phone] [facility] Mass of finger of right handGiant cell tumor of tendon sheath Aug-0 8 Daisy Mckenzie. [address] [facility], [place], [place], [address]. tel:[phone] [facility], [address], [address], [place] tel:[phone] [facility] Giant cell tumor of tendon sheathMass of finger of right hand 8 Daisy Mckenzie. [address] [place], [place], [address]. tel:[phone] [facility], [address] [address], [place], [address], [place] tel:[phone] [facility] Giant cell tumor of tendon sheath 8 Daisy Mckenzie. [address] [place], [place], [address]. tel:[phone] OFFICE/OUTPA TIENT VISIT NEW [facility], [address], [address], [place] tel:[phone] [facility] Pain in right finger(s)Pain in left finger(s)Tobacc o useOsteoarthrit is of right thumbOsteoarthr itis of left thumbMass of finger of right handBody mass index (BMI) 29.0-29.9, adult 8 Daisy Mckenzie. [address] [place], [place], [address]. tel:[phone] Referring Provider: Hellen Aguilar, [address] [place], [address]. tel:[phone] Family History Family Member Type Diagnosis Age At Onset Brother Problem Alive and well Brother Problem Diabetes mellitus Mother Problem Hypertension Father Problem Diabetes mellitus Brother Problem Hypertension Mother Problem (finding) Alive and well Mother Problem Cardiovascular disease Mother Problem Alive and well Immunizations Vaccine Date Status Comments Pneumo (2 yrs or older)(PPV) administered Source: Other Provider Pneumo (2 yrs or older)(PPV) administered Source: Other Provider Pneumo (2 yrs or older)(PPV) administered Source: Other Provider Payers Payer name Insurance type Covered green party ID Lydia nicole(s) Maru PPO [id number] Social History Type Description Quantity Date Captured Comments Alcohol Use Details Unknown Caffeine Use Details Unknown Tobacco Use Status Heavy cigarette smok er (20-39 cigs/day) Smoking Status Heavy tobacco smoker Sex Female Chief Complaint And Reason For Visit No Information Reason For Referral Reason For Referral No Information Plan Of Treatment Date Type Action Status Goal Tobacco cessation counseling completed Goal Tobacco cessation counseling completed Goal Tobacco cessation counseling completed Goal Tobacco cessation counseling completed Goal Tobacco cessation counseling completed Goal Tobacco cessation counseling completed Goal Tobacco cessation counseling completed Goal Tobacco cessation counseling completed Goal Tobacco cessation counseling completed Goal Tobacco cessation counseling completed Goal Tobacco cessation counseling completed Goal Tobacco cessation counseling completed Goal Tobacco cessation counseling completed Goal Tobacco cessation counseling completed Goal Tobacco cessation counseling completed Goal Tobacco cessation counseling completed Goal Tobacco cessation counseling completed Goal Tobacco cessation counseling completed Goal Tobacco cessation counseling completed Goal Tobacco cessation counseling completed Goal Tobacco cessation counseling completed Goal Smoking cessation education completed Goal Tobacco cessation counseling completed Goal Smoking cessation education completed Goal Tobacco cessation counseling completed Goal Smoking cessation education completed Goal Tobacco cessation counseling completed Goal Smoking cessation education completed Goal Tobacco cessation counseling completed Goal Tobacco cessation counseling completed Goal Smoking cessation education completed Referral Ordered: RADEX KNE 3 VIEWS Bilateral knee ordered Referral Ordered: RADEX KNE COMPL 4/MORE VIEWS RT knee ordered Referral Ordered: RADEX KNE COMPL 4/MORE VIEWS Bilateral ordered Referral Ordered: MANUAL APPL STRESS PFRMD PHYS JOINT RADIOGRAPHY RT knee ordered Referral Ordered: RADEX WRST COMPL MINIMUM 3 VIEWS LT wrist ordered Referral Ordered: RADEX FNGR MINIMUM 2 VIEWS LT THUMB BASAL JOINT ordered Referral Ordered: RADEX WRST COMPL MINIMUM 3 VIEWS RT ordered Referral Ordered: RADEX FNGR MINIMUM 2 VIEWS RT thumb ordered Referral Ordered: RADEX ITALO COMPL MINIMUM 2 VIEWS LT shoulder ordered Referral Ordered: RADEX FNGR MINIMUM 2 VIEWS RT thumb basal jt ordered Referral Ordered: RADEX FNGR MINIMUM 2 VIEWS RT index finger ordered Referral Ordered: RADEX FNGR MINIMUM 2 VIEWS LT thumb basal jt ordered History Of Present Illness Encounter Date Complaint History Of Prese nt Illness No Information Functional Status Date Functional Assessmen t No Information Instructions Date Instruction Additional Infor mation Giving encouragement to exercise Related to Body mass index [BMI] 27.0-27.9, adult Activity as tolerated. Related t o Radial styloid tenosynovitis [de Quervain] Activity as tolerated. Related t o Radial styloid tenosynovitis [de Quervain] Activity as tolerated. Related t o Radial styloid tenosynovitis [de Quervain] Giving encouragement to exercise Related to Body mass index [BMI] 26.0-26.9, adult Activity as tolerated. 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 Related t o Radial styloid tenosynovitis [de Quervain] Activity as tolerated. Related t o Unilateral primary osteoarthritis of first carpometacarpal joint, left hand Activity as tolerated. Related t o Unilateral primary osteoarthritis of first carpometacarpal joint, left hand Activity as tolerated. Related t o Unilateral primary osteoarthritis of first carpometacarpal joint, left hand Giving encouragement to exercise Related to Body mass index [BMI] 27.0-27.9, adult Activity as tolerated. Related t o Osteoarthritis of left thumb Activity as tolerated. Related t o Osteoarthritis of left thumb Activity as tolerated. Related t o Radial styloid tenosynovitis [de Quervain] Activity as tolerated. Related t o De Quervain's tenosynovitis, right Activity as tolerated. Related t o De Quervain's tenosynovitis, right Use anti-inflammatory as directe d. Related to De Quervain's tenosynovitis, right Activity as tolerated. Related t o De Quervain's tenosynovitis, right Activity as tolerated. Related t o Unil primary osteoarth of first carpometacarp joint, r hand Activity as tolerated. Related t o Unil primary osteoarth of first carpometacarp joint, r hand Activity as tolerated. Related t o Unil primary osteoarth of first carpometacarp joint, r hand Activity as tolerated. Related t o Osteoarthritis of right thumb Activity as tolerated. Related t o Osteoarthritis of right thumb Activity as tolerated. Related t o Osteoarthritis of left thumb Call for increased pain. Related to Capsulitis of left shoulder Discussed treatment options. Rel ated to Capsulitis of left shoulder discussed treatment plans Relate d to Capsulitis of left shoulder call for increased pain Related to Capsulitis of left shoulder rest,ice,elevate as needed. Rela kath to Capsulitis of left shoulder Fall risk home exerc ise program handout provided Take medication as d irected, call office with change in symptoms Related to Acute pain of left shoulder Discussed treatment options Rela kath to Tendinopathy of left rotator cuff Activity as tolerated. Related t o Osteoarthritis of right thumb Giving encouragement to exercise Related to Body mass index (BMI) 29.0-29.9, adult Activity as tolerated. Related t o Osteoarthritis of left thumb Activity as tolerated. Related t o Osteoarthritis of right thumb Assessments Type Assessment Date assessment Bilateral primary osteoarthritis of knee Patient Care Teams Name Effective Dates (start - stop) Status Members No Information
--- OUTSIDE RECORDS SUMMARY | 2024-09-30 08:31 | XMS_ITS | Referral Summary ---
Author Organization [facility] Address [address] [place] [address] Care Team Providers Care Veterans Adviser Name Role Phone Hellen Chan MD Primary Care Provider [phone] Lupillo Stubbs MD Unavailable [phone] Allergies Active Allergy Reactions Criticality Noted [...] 1 week 05/17/19 Active vit A,C and C-zyyply-efuwrtyt (OCUVITE with LUTEIN) 1,000 unit-200 mg-60 unit-2 [...] (02/13/2020): Added automatically from request for surgery [id number] Immunizations Immunization Administration Dates Next Due Influenza, Unspecified 02/02/2020 Social History Tobacco Use Types Packs/Day Years [...] Orientation Straight 12/27/2019 8: 55 AM CDT Last Filed Vital Signs Vital Sign Reading Time Taken Comments Blood Pressure 137/82 06/15/2020 1:45 PM HEAD TURBINE OPERATOR Pulse 83 06/15/2020 1:45 PM HEAD TURBINE OPERATOR Temperature 36.2 C (97.1 F) 06/15/2020 1:45 PM HEAD TURBINE OPERATOR Respiratory Rate 20 05/19/2020 8:10 AM HEAD TURBINE OPERATOR Oxygen Saturation 88% 05/19/2020 10: 40 AM HEAD TURBINE OPERATOR Inhaled Oxygen Concentration - - Weight 66.6 kg (146 lb 12.8 oz) 06/15/2020 1:45 PM HEAD TURBINE OPERATOR Height 154.9 cm (5' 1) 06/15/2020 1:45 PM HEAD TURBINE OPERATOR Body Mass Index 27.74 06/15/2020 1:45 PM HEAD TURBINE OPERATOR Plan of Treatment Not on file Insurance [facility] Advance Directives For more information, please contact: [phone] * Full Code (Latest Code Status on File) Date Activated Date Inactivated Comments 05/16/2020 5:01 PM 05/19/2020 5:53 PM Care Teams Veterans Adviser Relationship Specialty Start Date End Date Hellen Chan MD [address] [place] [phone] PCP - General Family Medicine 12/09/19 Lupillo Stubbs MD [address] [place] [phone] Consulting Physician Gastroenterology 05/17/20
[2024-09-30 10:50] VITALS: BP 165/70; PULSE 69; RESP 20; O2SAT 98
[2024-09-30 11:11] LABS: Basophils Absolute Auto 0.1 K/mm3 (0.0-0.1); Basophils Percent Auto 0.5 % (0.2-1.2); Eosinophils Absolute Auto 0.2 K/mm3 (0-0.3); Eosinophils Percent Auto 1.4 % (0-4.4); Hematocrit 44.5 % (37.0-47.0); Hemoglobin 15.1 g/dL (12.0-15.0); Immature Granulocyte Absolute 0.04 K/mm3 (0.00-0.031); Immature Granulocyte Percent A 0.4 % (0-0.5); Lymphocytes Absolute Auto 2.99 K/mm3 (0.9-3.2); Lymphocytes Percent Auto 28.6 % (18.3-44.2); Mean Corpuscular HGB Conc 33.9 g/dl (32-36); Mean Corpuscular Hemoglobin 30.1 pg (26-34); Mean Corpuscular Volume 88.8 fl (80-100); Mean Platelet Volume 8.6 fl (7.4-10.4); Monocytes Absolute Auto 0.6 K/mm3 (0.1-0.6); Monocytes Percent Auto 5.6 % (2.6-8.5); Neutrophils Absolute Auto 6.6 K/mm3 (1.3-6.7); Neutrophils Percent Auto 63.5 % (45.5-73.1); Platelet Count Result 404 k/mm3 (150-375); Red Blood Count 5.01 M/mm3 (4.2-5.4); White Blood Count 10.4 K/mm3 (4.5-10.0)
--- OUTSIDE RECORDS SUMMARY | 2024-09-30 11:16 | XMS_ITS | Referral Summary ---
Author Organization [facility] Address [address] [place] [address] Care Team Providers Care Forming Roll Operator Heavy Duty Name Role Phone Hellen Chan MD Primary Care Provider [phone] Lupillo Stubbs MD Unavailable [phone] Allergies Active Allergy Reactions Criticality Noted [...] 1 week 05/17/19 Active vit A,C and I-mqwqwk-eonmkvbt (OCUVITE with LUTEIN) 1,000 unit-200 mg-60 unit-2 [...] (02/13/2020): Added automatically from request for surgery [id number] Immunizations Immunization Administration Dates Next Due Influenza, [...] Comments Blood Pressure 137/82 06/15/2020 1:45 PM DATA COMMUNICATIONS SOFTWARE CONSULTANT Pulse 83 06/15/2020 1:45 PM DATA COMMUNICATIONS SOFTWARE CONSULTANT Temperature 36.2 C (97.1 F) 06/15/2020 1:45 PM DATA COMMUNICATIONS SOFTWARE CONSULTANT Respiratory Rate 20 05/19/2020 8:10 AM DATA COMMUNICATIONS SOFTWARE CONSULTANT Oxygen Saturation 88% 05/19/2020 10: 40 AM DATA COMMUNICATIONS SOFTWARE CONSULTANT Inhaled Oxygen Concentration - - Weight 66.6 kg (146 lb 12.8 oz) 06/15/2020 1:45 PM DATA COMMUNICATIONS SOFTWARE CONSULTANT Height 154.9 cm (5' 1) 06/15/2020 1:45 PM DATA COMMUNICATIONS SOFTWARE CONSULTANT Body Mass Index 27.74 06/15/2020 1:45 PM DATA COMMUNICATIONS SOFTWARE CONSULTANT Plan of Treatment Not on file Insurance [facility] Advance Directives For more information, please contact: [phone] * Full Code (Latest Code Status on File) Date Activated Date Inactivated Comments 05/16/2020 5:01 PM 05/19/2020 5:53 PM Care Teams Forming Roll Operator Heavy Duty Relationship Specialty Start Date End Date Hellen Chan MD [address] [place] [phone] PCP - General Family Medicine 12/09/19 Lupillo Stubbs MD [address] [place] [phone] Consulting Physician Gastroenterology 05/17/20
--- OUTSIDE RECORDS SUMMARY | 2024-09-30 11:16 | XMS_ITS | Continuity of Care Document ---
Author Organization [facility] Address [address] [place] [address] Phone Care Team Providers Care International Sales Manager Name Role Phone Umberto Glover PA-C Unavailable [...] OFFICE/OUTPA TIENT VISIT EST [facility], [address], [place], [address], [place] tel:[phone] [facility] Bilateral primary osteoarthritis of knee 5 Belen Shipman. [address], [place], [place], [address], [place]. tel:[phone] Referring Provider: Hellen Aguilar, [address] [place], [address]. tel:[phone] [facility], [address], [place], [address], [place] tel:[phone] [facility] Bilateral primary osteoarthritis of knee Aug- 5 Belen Shipman. [address], [place], [place], [address], [place]. tel:[phone] Referring Provider: Hellen Aguilar, [address] [place], [address]. tel:[phone] [facility], [address], [place], [address], [place] tel:[phone] [facility] Bilateral primary osteoarthritis of knee Aug- 5 Harry Pike. [address], [place], [place], [address], [place]. tel:[phone] Referring Provider: Hellen Aguilar, [address] [place], [address]. tel:[phone] [facility], [address], [place], [address], [place] tel:[phone] [facility] Bilateral primary osteoarthritis of knee Aug- 5 Belen Shipman. [address], [place], [place], [address], [place]. tel:[phone] Referring Provider: Hellen Aguilar, [address] [place], [address]. tel:[phone] OFFICE/OUTPA TIENT VISIT EST [facility], [address] [email or web address], [place], [address], [place] tel:[phone] [facility] Bilateral primary osteoarthritis of knee Fe 5 Belen Shipman. [address], [place], [place], [address], [place]. tel:[phone] Referring Provider: Hellen Aguilar, [address] [place], [address]. tel:[phone] OFFICE/OUTPA TIENT VISIT EST [facility], [address], [place], [address], [place] tel:[phone] [facility] Bilateral primary osteoarthritis of knee 4 Иван Billingsley. [address], [place], [address], [place]. tel:[phone] Referring Provider: Hellen Aguilar, [address] [place], [address]. tel:[phone] OFFICE/OUTPA TIENT VISIT EST [facility], [address] [email or web address], [place], [address], [place] tel:[phone] [facility] Bilateral chronic knee painBilateral primary osteoarthritis of kneeBody mass index [BMI] 27.0-27.9, adult 4 Rip Rodriguez . [address], [place], [place], [address]. tel:[phone] Referring Provider: Hellen Aguilar, [address] [place], [address]. tel:[phone] [facility], [address], [place], [address], [place] tel:[phone] [facility] Radial styloid tenosynovitis [de Quervain] 2 Daisy Mckenzie. [address] [facility], [place], [place], [address]. tel:[phone] Referring Provider: Hellen Aguilar, [address] [place], [address]. tel:[phone] [facility], [address], [address], [place] tel:[phone] [facility] Radial styloid tenosynovitis [de Quervain] 2 Daisy Mckenzie. [address] [place], [place], [address]. tel:[phone] [facility], [address], [address], [place] tel:[phone] [facility] No Information 2 Daisy Mckenzie. [address] [place], [place], [address]. tel:[phone] OFFICE/OUTPA TIENT VISIT EST [facility], [address] [address], [place], [address], [place] tel:[phone] [facility] Degenerative tear of triangular fibrocartilage complex (TFCC) of left wristRadial styloid tenosynovitis [de Quervain]Unilat eral primary osteoarthritis of first carpometacarpal joint, left handBody mass index [BMI] 26.0-26.9, adult 2 Daisy Mckenzie. [address] [place], [place], [address]. tel:[phone] Referring Provider: Hellen Aguilar, [address] [place], [address]. tel:[phone] [facility], [address], [address], [place] tel:[phone] [facility] Radial styloid tenosynovitis [de Quervain] Oct-2 2 Daisy Mckenzie. [address] [facility], [place], [place], [address]. tel:[phone] OFFICE/OUTPA TIENT VISIT EST [facility], [address] [address], [place], [address], [place] tel:[phone] [facility] Radial styloid tenosynovitis [de Quervain]Unilat eral primary osteoarthritis of first carpometacarpal joint, left handBody mass index [BMI] 27.0-27.9, adultDegenerati ve tear of triangular fibrocartilage complex (TFCC) of left wrist Aug-0 2 Daisy Mckenzie. [address] [facility], [place], [place], [address]. tel:[phone] Referring Provider: Hellen Aguilar, [address] [place], [address]. tel:[phone] OFFICE/OUTPA TIENT VISIT EST [facility], [address] [address], [place], [address], [place] tel:[phone] [facility] Unilateral primary osteoarthritis of first carpometacarpal joint, left hand Jul-2 2 Daisy Mckenzie. [address] [place], [place], [address]. tel:[phone] Referring Provider: Hellen Aguilar, [address] [place], [address]. tel:[phone] [facility], [address] [address], [place], [address], [place] tel:[phone] [facility] Unilateral primary osteoarthritis of first carpometacarpal joint, left hand Feb-1 0- 2 Daisy Mckenzie. [address] [place], [place], [address]. tel:[phone] Referring Provider: Hellen Aguilar, [address] [place], [address]. tel:[phone] [facility], [address] [address], [place], [address], [place] tel:[phone] [facility] Unilateral primary osteoarthritis of first carpometacarpal joint, left handBody mass index [BMI] 27.0-27.9, adult 2 Daisy Mckenzie. [address] [facility], [place], [place], [address]. tel:[phone] Referring Provider: Hellen Aguilar, [address] [place], [address]. tel:[phone] [facility], [address] [address], [place], [address], [place] tel:[phone] [facility] Unilateral primary osteoarthritis of first carpometacarpal joint, left hand 1 Daisy Mckenzie. [address] [place], [place], [address]. tel:[phone] Referring Provider: Hellen Aguilar, [address] [place], [address]. tel:[phone] [facility], [address], [address], [place] tel:[phone] [facility] Osteoarthritis of left thumb 1 Daisy Mckenzie. [address] [facility], [place], [place], [address]. tel:[phone] Referring Provider: Hellen Aguilar, [address] [place], [address]. tel:[phone] [facility], [address], [address], [place] tel:[phone] [facility] Osteoarthritis of left thumbPain in left finger(s) 1 Daisy Mckenzie. [address] [place], [place], [address]. tel:[phone] [facility], [address], [address], [place] tel:[phone] [facility] Unilateral primary osteoarthritis of first carpometacarpal joint, left hand 1 Daisy Mckenzie. [address] [facility], [place], [place], [address]. tel:[phone] OFFICE/OUTPA TIENT VISIT EST [facility], [address] [address], [place], [address], [place] tel:[phone] [facility] Pain in left finger(s)Osteoa rthritis of left thumb 1 Daisy Mckenzie. [address] [facility], [place], [place], [address]. tel:[phone] [facility], [address] [address], [place], [address], [place] tel:[phone] [facility] Radial styloid tenosynovitis [de Quervain] 0 Daisy Mckenzie. [address] [facility], [place], [place], [address]. tel:[phone] [facility], [address], [address], [place] tel:[phone] [facility] Radial styloid tenosynovitis [de Quervain] 0 Daisy Mckenzie. [address] [place], [place], [address]. tel:[phone] [facility], [address] [address], [place], [address], [place] tel:[phone] [facility] Radial styloid tenosynovitis [de Quervain] 0 Daisy Mckenzie. [address] [place], [place], [address]. tel:[phone] OFFICE/OUTPA TIENT VISIT EST [facility], [address] [address], [place], [address], [place] tel:[phone] [facility] De Quervain's tenosynovitis, right 0 Daisy Mckenzie. [address] , [place], [place], [address]. tel:[phone] OFFICE/OUTPA TIENT VISIT EST [facility], [address], [place], [address], [place] tel:[phone] [facility] De Quervain's tenosynovitis, rightUnil primary osteoarth of first carpometacarp joint, r hand Aug- 0 Daisy Mckenzie. [address] , [place], [place], [address]. tel:[phone] OFFICE/OUTPA TIENT VISIT EST [facility], [address] [address], [place], [address], [place] tel:[phone] [facility] Unil primary osteoarth of first carpometacarp joint, r handDe Quervain's tenosynovitis, right Jun- 0 Daisy Mckenzie. [address] , [place], [place], [address]. tel:[phone] OFFICE/OUTPA TIENT VISIT EST [facility], [address] [address], [place], [address], [place] tel:[phone] [facility] De Krish's tenosynovitis, right May- 0 Odell Obrien. [address] [facility] [address], [place], [place], [address]. tel:[phone] [facility], [address] [facility], [place], [address], [place] tel:[phone] [facility] Unil primary osteoarth of first carpometacarp joint, r hand 0 Daisy Mckenzie. [address] [facility] [place], [place], [address]. tel:[phone] [facility], [address] [address], [place], [address], [place] tel:[phone] [facility] Unil primary osteoarth of first carpometacarp joint, r hand Nov-2 7-201 9 Daisy Mckenzie. [address] [facility], [place], [place], [address]. tel:[phone] [facility], [address] [address], [place], [address], [place] tel:[phone] [facility] Unil primary osteoarth of first carpometacarp joint, r hand Mar- 9 Daisy Mckenzie. [address] [facility], [place], [place], [address]. tel:[phone] [facility], [address], [address], [place] tel:[phone] [facility] Unil primary osteoarth of first carpometacarp joint, r hand 9 Daisy Mckenzie. [address] [place], [place], [address]. tel:[phone] [facility], [address] [address], [place], [address], [place] tel:[phone] [facility] Pain in right finger(s)Osteoa rthritis of right thumb 9 Daisy Mckenzie. [address] [place], [place], [address]. tel:[phone] [facility], [address], [address], [place] tel:[phone] [facility] Unil primary osteoarth of first carpometacarp joint, r hand 0 9 Daisy Mckenzie. [address] [place], [place], [address]. tel:[phone] OFFICE/OUTPA TIENT VISIT EST [facility], [address], [address], [place] tel:[phone] [facility] Osteoarthritis of right thumbOsteoarthr itis of left thumb 9 Daisy Mckenzie. [address] [place], [place], [address]. tel:[phone] OFFICE/OUTPA TIENT VISIT EST [facility], [address] [address], [place], [address], [place] tel:[phone] [facility] Capsulitis of left shoulderAcute pain of left shoulder 9 Li Harris. [address], [place], [place], [address]. tel:[phone] OFFICE/OUTPA TIENT VISIT EST [facility], [address], [place], [address], [place] tel:[phone] [facility] Capsulitis of left shoulder 9 Haresh Pillai. [address], [place], [place], [address]. tel:[phone] OFFICE/OUTPA TIENT VISIT EST [facility], [address] [address], [place], [address], [place] tel:[phone] [facility] After Sascha Acute pain of left shoulderTendino shreya of left rotator cuff 9 Hernandezcamilo Milligan. [address], [place], [place], [address]. tel:[phone] Referring Provider: Hellen Aguilar, [address] [place], [address]. tel:[phone] OFFICE/OUTPA TIENT VISIT EST [facility], [address] [address], [place], [address], [place] tel:[phone] [facility] Osteoarthritis of right thumb 8 Daisy Mckenzie. [address] [facility], [place], [place], [address]. tel:[phone] OFFICE/OUTPA TIENT VISIT EST [facility], [address], [place], [address], [place] tel:[phone] [facility] Giant cell tumor of tendon sheathOsteoarth ritis of left thumbOsteoarthr itis of right thumb 0-201 8 Daisy Mckenzie. [address] [facility], [place], [place], [address]. tel:[phone] [facility], [address], [address], [place] tel:[phone] [facility] Giant cell tumor of tendon sheath 8 Daisy Mckenzie. [address] [facility], [place], [place], [address]. tel:[phone] [facility], [address] [address], [place], [address], [place] tel:[phone] [facility] Mass of finger of right handGiant cell tumor of tendon sheath Aug-0 8 Daisy Mckenzie. [address] [facility], [place], [place], [address]. tel:[phone] [facility], [address], [address], [place] tel:[phone] [facility] Giant cell tumor of tendon sheathMass of finger of right hand 8 Daisy Mckenzie. [address] [place], [place], [address]. tel:[phone] [facility], [address] [address], [place], [address], [place] tel:[phone] [facility] Giant cell tumor of tendon sheath 8 Daisy Mckenzie. [address] [place], [place], [address]. tel:[phone] OFFICE/OUTPA TIENT VISIT NEW [facility], [address], [address], [place] tel:[phone] [facility] Pain in right finger(s)Pain in left finger(s)Tobacc o useOsteoarthrit is of right thumbOsteoarthr itis of left thumbMass of finger of right handBody mass index (BMI) 29.0-29.9, adult 8 Daisy Mckenzie. [address] [place], [place], [address]. tel:[phone] Referring Provider: Hellen Aguilar, [address] [place], [address]. tel:[phone] Family History Family Member Type Diagnosis Age [...] Provider Payers Payer name Insurance type Covered libertarian ID Lydia nicole(s) Maru PPO [id number] Social History Type Description Quantity Date Captured [...] hand Activity as tolerated. 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 Related t o Unilateral [...] Related t o Osteoarthritis of left thumb Discussed treatment options. Rel ated to Capsulitis of left shoulder Call for increased pain. Related to Capsulitis of left shoulder discussed treatment [...] Related t o Osteoarthritis of left thumb Assessments Type Assessment Date assessment Bilateral primary osteoarthritis of knee Patient Care Teams Name Effective Dates (start - stop) Status Members No Information
--- OUTSIDE RECORDS SUMMARY | 2024-09-30 11:16 | XMS_ITS | Clinical Summary ---
Author Organization [facility] Address [address] [place] [address] Care Team Providers Care Fiberline Supervisor Name Role Phone Hellen Chan MD Primary Care Provider [phone] Lupillo Stubbs MD Unavailable [phone] Allergies Active Allergy Reactions Criticality Noted [...] 1 week 05/17/19 Active vit A,C and E-rlqwkk-chepmnbs (OCUVITE with LUTEIN) 1,000 unit-200 mg-60 unit-2 [...] (02/13/2020): Added automatically from request for surgery [id number] Immunizations Immunization Administration Dates Next Due Influenza, [...] Comments Blood Pressure 137/82 06/15/2020 1:45 PM [employer] Pulse 83 06/15/2020 1:45 PM [employer] Temperature 36.2 C (97.1 F) 06/15/2020 1:45 PM [employer] Respiratory Rate 20 05/19/2020 8:10 AM MANAGER [employer] Oxygen Saturation 88% 05/19/2020 10: 40 AM MANAGER [employer] Inhaled Oxygen Concentration - - Weight 66.6 kg (146 lb 12.8 oz) 06/15/2020 1:45 PM [employer]NA[employer] Height 154.9 cm (5' 1) 06/15/2020 1:45 PM [employer] Body Mass Index 27.74 06/15/2020 1:45 PM MANA[employer] Plan of Treatment Not on file Insurance [facility] Advance Directives For more information, please contact: [phone] * Full Code (Latest Code Status on File) Date Activated Date Inactivated Comments 05/16/2020 5:01 PM 05/19/2020 5:53 PM Care Teams Fiberline Supervisor Relationship Specialty Start Date End Date Hellen Chan MD [address] [place] [address] PCP - General Family Medicine 12/09/19 Lupillo Stubbs MD [address] [place] [address] Consulting Physician Gastroenterology 05/17/20
[2024-09-30] MEDS: ONDANSETRON INJ 4 MG/2 ML VIAL IV PUSH (11:18)
[2024-09-30 11:23] LABS: Alanine Aminotransferase 41 U/L (6-35); Albumin Level 4.5 g/dL (3.5-5.1); Alkaline Phosphatase 86 U/L (38-126); Anion Gap 11 mmol/L (4-12); Aspartate Amino Transferase 34 U/L (14-36); Bilirubin,Total 0.5 mg/dL (0.2-1.3); Blood Urea Nitrogen 11 mg/dL (7-17); Calcium 9.8 mg/dL (8.4-10.2); Carbon Dioxide 26 mmol/L (22-30); Chloride 104 mmol/L (98-107); Estimated CRCL calculation 59 ml/min; Estimated Glomerular Filt Rate > 60; Glucose 177 mg/dL (65-110); Lipase 121 U/L (23-300); Sodium 141 mmol/L (137-145)
[2024-09-30] MEDS: MORPHINE SULFATE (*CRX) 4 MG/ML INJ IV PUSH (11:24)
[2024-09-30] MEDS: SODIUM CHLORIDE 0.9% IV 1,000 ML 999 ML IV CONT (11:24)
[2024-09-30 11:43] LABS: Add Urine Microscopic? YES; Appearance Urine Cloudy (Clear); Bacteria Urine Rare /hpf; Bilirubin Urine Negative (Negative); Blood Urine Negative (Negative); Color Urine Yellow (Yellow); Glucose Urine UA Negative (Negative); Ketones Urine Negative (Negative); Leukocyte Esterase Ur 1+ LEU/UL (Negative); Need Manual Microscopic Reviewed; Nitrate Urine Negative (Negative); Non Pathogenic Casts 0-2; Protein Urine Negative (Negative); Specific Grav Ur 1.015 (1.001-1.035); Squamous Epithelial Cell Urine Many /hpf (Few); Urobilinogen Urine 0.2 mg/dL (<2.0)
--- NOTE | 2024-09-30 11:44 | ED_ITS ---
HPI - Abdominal Pain General Chief Complaint: Abdominal Pain Stated Complaint: right flank pain, hx kidney stone Time Seen by Provider: 09/30/24 10:54 Source: patient Mode of arrival: ambulatory Limitations: no limitations History of Present Illness HPI narrative: This is a 74-year-old female that presents to the emergency department for right flank pain. Ongoing since earlier this morning. Reports history of kidney stones, her urologist is at [facility]. Reports her pain feels similar to previous kidney stones. Denies fevers, dysuria, hematuria Related Data Home Medications ?Medication ?Instructions ?Recorded ?Confirmed ?Last Taken ?Type amlodipine 10 mg tablet 10 mg PO DAILY 03/10/24 03/10/24 Unknown History aspirin 81 mg capsule 81 mg PO DAILY 03/10/24 03/10/24 Unknown History bupropion HCl 300 mg 24 hr tablet, 300 mg PO DAILY 03/10/24 03/10/24 Unknown History extended release duloxetine 60 mg capsule,delayed 60 mg PO DAILY 03/10/24 03/10/24 03/10/24 09:00 History release fluticasone propionate 50 1 spray intranasal DAILY allergy 03/10/24 03/10/24 Unknown History mcg/actuation nasal spray,suspension gabapentin 300 mg capsule 300 mg PO DAILY 03/10/24 03/10/24 Unknown History ibuprofen 600 mg tablet 600 mg PO TID pain 03/10/24 03/10/24 Unknown History losartan 50 mg tablet 50 mg PO DAILY 03/10/24 03/10/24 Unknown History meclizine 25 mg tablet 25 mg PO DAILY 03/10/24 03/10/24 Unknown History meloxicam 15 mg tablet 15 mg PO DAILY 03/10/24 03/10/24 Unknown History metformin 500 mg tablet,extended 500 mg PO DAILY 03/10/24 03/10/24 Unknown History release 24 hr metoprolol succinate 25 mg 25 mg PO DAILY 03/10/24 03/10/24 03/10/24 09:00 History tablet,extended release 24 hr tizanidine 4 mg tablet 4 mg PO Q6H PRN muscle spasms 03/10/24 03/10/24 Unknown History tramadol 50 mg tablet 50 mg PO Q6H PRN Pain 03/10/24 03/10/24 Unknown History triamterene 37.5 1 tablet PO DAILY 03/10/24 03/10/24 Unknown History mg-hydrochlorothiazide 25 mg tablet zolpidem 10 mg tablet 10 mg PO HS 03/10/24 03/10/24 Unknown History Allergies Allergy/AdvReac Type Severity Reaction Status Date / Time codeine AdvReac Hives Verified 03/05/23 13:10 Review of Systems 2 Review of Systems: CONSTITUTIONAL: Denies fever GASTROINTESTINAL: Reports abdominal pain, nausea. Denies vomiting GENITOURINARY: Denies dysuria or hematuria. All systems reviewed & are unremarkable except as noted in HPI and below PMFSH Past Medical History Medical History (Updated 09/30/24 @ 13:29 by Rose Johnson PA-C) Falls frequently Ataxia Obstructive sleep apnea syndrome in adult Benign positional vertigo Diabetic polyneuropathy Right carotid bruit Hypertension Diabetes Family History Family History (Updated 03/10/24 @ 22:40 by Analilia Mckenna RN) Father Chronic obstructive pulmonary disease Sibling Cerebrovascular accident Social History Social History (Updated 03/10/24 @ 21:40 by Casey Saenz MD) Smoking packs per day: 0.5 Smoking cigarettes per day: 10.0 Smoking status: Current every day smoker Tobacco type: cigarettes Substance use: current Substance use type: does not use Do You Feel Safe in your Home?: Yes Lack of Transportation: No Lack of Food: Never True Current Housing: I Have Housing Concerned About Future Housing: No Difficulty Paying Gas/Electric Bills: No Difficulty Paying for Meds: No Currently Unemployed: No Education: Trade/Vocational Certificate Difficulty w/ Childcare or Family Care: No Spiritual care concerns: No Exam 2 Narrative: GENERAL: Well-appearing, well-nourished, and in no acute distress. HEAD: Normocephalic, atraumatic. EYES: EOMI. CHEST: Clear to auscultation. No respiratory distress. No wheezes rales or rhonchi HEART: Regular rate and rhythm. No murmur heard. Normal peripheral pulses. ABDOMEN: Soft, nontender, nondistended, normal active bowel sounds. EXTREMITIES: Normal range of motion. No edema. SKIN: Warm, dry, no rash. NEURO: No focal deficits. Alert and oriented x3. PSYCH: Normal mood and affect Course Course Emergency Course: Patient updated on her workup and agrees with plan of care Vital Signs Vital signs: Vital Signs Temperature 98.8 F 09/30/24 08:30 Pulse Rate 80 09/30/24 08:30 Respiratory Rate 16 09/30/24 08:30 Blood Pressure 114/71 09/30/24 08:30 Pulse Oximetry 96 09/30/24 08:30 Oxygen Delivery Room Air 09/30/24 08:30 Temperature 98.8 F 09/30/24 08:30 Pulse Rate 69 09/30/24 10:50 Respiratory Rate 20 09/30/24 10:50 Blood Pressure 165/70 H 09/30/24 10:50 Pulse Oximetry 98 09/30/24 10:50 Oxygen Delivery Room Air 09/30/24 08:30 MDM - Abdominal Pain MDM Narrative Medical decision making narrative: Patient presents to the emergency department for right flank pain. History of kidney stones. She is afebrile and nontoxic appearing. CBC with mild leukocytosis to 10.4, also shows hemoconcentration. Patient hydrated with IV fluids. Metabolic panel with normal kidney function. Urine with 6-10 white blood cells, also many squamous epithelial cells. Patient does not have any urinary symptoms. Will send this for culture. CT abdomen pelvis does show a 2 mm distal right ureteral stone. Patient's pain relieved with Toradol. She was updated on her workup and agrees with plan of care. Instructed to follow-up with her urologist. She was given warnings to return to the ER Differential Diagnosis Differential diagnosis: Likely abdominal pain, calculus of kidney, constipation, diverticulitis and other (UTI) Lab Data Attestation: I reviewed the patient's lab results. 09/30/24 11:05 09/30/24 11:05 Labs: Lab Results 09/30/24 Range/Units 11:05 WBC 10.4 H (4.5-10.0) K/mm3 RBC 5.01 (4.2-5.4) M/mm3 Hgb 15.1 H (12.0-15.0) g/dL Hct 44.5 (37.0-47.0) % MCV 88.8 (80-100) fl MCH 30.1 (26-34) pg MCHC 33.9 (32-36) g/dl RDW 13.0 (11.5-14.5) % Plt Count 404 H (150-375) k/mm3 MPV 8.6 (7.4-10.4) fl Immature Gran % (Auto) 0.4 (0-0.5) % Neut % (Auto) 63.5 (45.5-73.1) % Lymph % (Auto) 28.6 (18.3-44.2) % [place] % (Auto) 5.6 (2.6-8.5) % Eos % (Auto) 1.4 (0-4.4) % Baso % (Auto) 0.5 (0.2-1.2) % Lymph # (Auto) 2.99 (0.9-3.2) K/mm3 [place] # (Auto) 0.6 (0.1-0.6) K/mm3 Eos # (Auto) 0.2 (0-0.3) K/mm3 Baso # (Auto) 0.1 (0.0-0.1) K/mm3 Abs Immat Gran (auto) 0.04 H (0.00-0.031) K/mm3 Absolute Neuts (auto) 6.6 (1.3-6.7) K/mm3 Absolute Nucleated RBC 0.000 (0.0-0.012) K/mm3 Nucleated RBC % 0.0 (0.0-0.2) % Sodium 141 (137-145) mmol/L Potassium 4.0 (3.4-5.0) mmol/L Chloride 104 (98-107) mmol/L Carbon Dioxide 26 (22-30) mmol/L Anion Gap 11 (4-12) mmol/L BUN 11 D (7-17) mg/dL Creatinine 0.64 L (0.7-1.0) mg/dL Estim Creat Clear Calc 59 ml/min Estimated GFR > 60 (59 - ) Glucose 177 H (65-110) mg/dL Calcium 9.8 (8.4-10.2) mg/dL Total Bilirubin 0.5 (0.2-1.3) mg/dL AST 34 (14-36) U/L ALT 41 H (6-35) U/L Alkaline Phosphatase 86 (38-126) U/L Total Protein 7.0 (6.3-8.2) g/dL Albumin 4.5 (3.5-5.1) g/dL Lipase 121 (23-300) U/L Urine Color Yellow (Yellow) Urine Appearance Cloudy H (Clear) Urine pH 6.0 (5.0-9.0) Ur Specific [place] 1.015 (1.001-1.035) Urine Protein Negative (Negative) mg/dL Urine Glucose (UA) Negative (Negative) mg/dL Urine Ketones Negative (Negative) mg/dL Ur Blood (Man) Negative (Negative) Urine Nitrate Negative (Negative) Urine Bilirubin Negative (Negative) Urine Urobilinogen 0.2 (<2.0) mg/dL Add Ur Microanalysis Reviewed Leukocyte Esterase Rfl 1+ H (Negative) ROLA/UL Urine RBC 6-10 H (0-2) /hpf Urine WBC 6-10 H (0-3) /hpf Ur Squamous Epith Cells Many H (Few) /hpf Urine Bacteria Rare /hpf Urine Casts 0-2 Imaging Data Radiologist's impression: ITS Impressions Abdomen/Pelvis CT 09/30/24 11:57 IMPRESSION: Mild right-sided hydroureteronephrosis secondary to a 2 mm calculus within the distal right ureter. Multiple nonobstructing stones within the left kidney. Critical Care Time Critical Care Time Critical Care Time: No Discharge Plan Discharge Clinical Impression: Ureterolithiasis Patient Disposition: Home Condition: Stable Instructions: Kidney Stones (ED), How to Strain Your Urine (ED) Additional Instructions: Return to the ER if you experience fever, abdominal pain with nausea and vomiting, you are unable to keep down liquids or solids, pain or burning with urination, blood in the urine or any other symptoms that are concerning to you Remain well hydrated. Take Tamsulosin daily. [id number] pain medication as needed. Prescribed pain medication as needed. Strain your urine Follow up with your urologist Patient Language: [place] Prescriptions: New tamsulosin 0.4 mg capsule 0.4 mg PO DAILY 7 Days Qty: 7 0RF hydrocodone-acetaminophen 5-325 mg tablet 1 tablet PO Q6H PRN (Reason: pain) Qty: 20 0RF No Action metoprolol succinate 25 mg tablet extended release 24 hr 25 mg PO DAILY gabapentin 300 mg capsule 300 mg PO DAILY Rx Instructions: 3 pills in am and 1 pill at night duloxetine 60 mg capsule,delayed release(DR/EC) 60 mg PO DAILY bupropion HCl 300 mg tablet extended release 24 hr 300 mg PO DAILY meclizine 25 mg Tablet 25 mg PO DAILY losartan 50 mg tablet 50 mg PO DAILY amlodipine 10 mg tablet 10 mg PO DAILY triamterene-hydrochlorothiazid 37.5-25 mg tablet 1 tablet PO DAILY meloxicam 15 mg tablet 15 mg PO DAILY metformin 500 mg tablet extended release 24 hr 500 mg PO DAILY Rx Instructions: 3 pills in Am and 1 pill at night zolpidem 10 mg tablet 10 mg PO HS tizanidine 4 mg tablet 4 mg PO Q6H PRN (Reason: muscle spasms) tramadol 50 mg tablet 50 mg PO Q6H PRN (Reason: Pain) ibuprofen 600 mg Tablet 600 mg PO TID aspirin 81 mg Capsule 81 mg PO DAILY fluticasone propionate 50 mcg/actuation [place],Suspension 1 spray INTRANASAL DAILY Rx Instructions: administer into each nostril atorvastatin 20 mg Tablet 40 mg PO DAILY Qty: 90 0RF clopidogrel [Plavix] 75 mg tablet 75 mg PO DAILY Qty: 90 0RF Rx Instructions: take daily for 3 months Follow-up/Referrals: UNKNOWN,DOCTOR [Primary Care Provider] -
[2024-09-30] MEDS: KETOROLAC 15 MG/ML VIAL (*BKC) IV PUSH (12:31)
--- NOTE | 2024-09-30 13:36 | PC.NURSE ---
called lab to add on urine culture.
[2024-09-30 13:45] VITALS: BP 125/56; PULSE 72; RESP 16; O2SAT 97
== END 2024-09-30 13:45 | disposition home or self-care (01) ==
PROVIDERS: Emergency Provider Physician Assistant
DX: N13.2 Hydronephrosis with renal and ureteral calculous obstruction (principal); I10 Essential (primary) hypertension; E11.42 Type 2 diabetes mellitus with diabetic polyneuropathy; G47.33 Obstructive sleep apnea (adult) (pediatric); F17.210 Nicotine dependence, cigarettes, uncomplicated; Z87.442 Personal history of urinary calculi; Z79.899 Other long term (current) drug therapy; Z79.84 Long term (current) use of oral hypoglycemic drugs; Z79.82 Long term (current) use of aspirin; Z79.02 Long term (current) use of antithrombotics/antiplatelets
CPT/HCPCS: 36415; 74176; 80053; 81001; 83690; 85025; 87086; 96361; 96374; 96375; 99284; J1885; J2270; J2405; J7030